=== PATIENT | female | born 1940 | race Caucasian/White ===

== ENCOUNTER 2020-06-07 11:05 | Inpatient (IN) | payer MEDICARE, OTHER, SELFPAY ==
[2020-06-07] VITALS (10 sets, daily range): BP systolic 135–158; BP diastolic 53–77; PULSE 59–83; RESP 13–20; TEMP 36.6–36.9; O2SAT 96–98; BMI 23.7; BMI 23.1
--- NOTE | 2020-06-07 11:26 | EKG12_ITS ---
Test Reason : CP Blood Pressure : / mmHG Vent. Rate : 078 BPM Atrial Rate : 078 BPM P-R Int : 156 ms QRS Dur : 122 ms QT Int : 394 ms P-R-T Axes : 068 -60 102 degrees QTc Int : 449 ms Normal sinus rhythm with sinus arrhythmia Left axis deviation Left bundle branch block Abnormal ECG Confirmed by JORGE AUSTIN, HI ([id number]), video editor VIET ROMAN ([id number]) on 06/08/2020 11:33:10 A M Referred By: SHERINE/DENILSON Confirmed By:ABI PATEL MD
--- NOTE | 2020-06-07 11:27 | ED.VISSUMM ---
- ER Visit Summary Date of Service: 06/07/20 Chief Complaint: Chest pain History of Present Illness: The patient is a 79 F who presents with chest pain that began today. Patient states she was walking and she felt pain in her substernal area. Patient describes it as a heaviness and pressure. Patient states she sat down and rested and the pain resolved. Patient states the pain lasted approximately 2 minutes. Patient denies any nausea or vomiting. Patient denies any diaphoresis. Patient denies any shortness of breath. Patient denies any lightheadedness or dizziness. Patient denies any palpitations. Patient denies any cough or fevers. Physical Examination: Vital signs are stable. Patient is afebrile. Patient is in no acute distress. Oral mucosa is pink and moist. Neck is supple. Trachea is midline. There is no JVD noted. Heart was regular rate and rhythm. Lungs are clear and equal bilaterally. Abdomen is soft. Bowel sounds are normal. There is no tenderness. There is no rebound or guarding noted. Skin is warm dry. Cranial nerves II through XII are intact. There are no focal motor or sensory deficits noted. Extremities are intact. There is no calf tenderness or edema. Test Results: EKG showed a normal sinus rhythm with a rate of 78. There is a left bundle branch block pattern noted. There are no acute ST or T wave changes. There are no prior EKGs available for comparison. CBC, basic metabolic profile, and troponin were obtained and were normal. Portable chest x-ray was obtained. There is no acute cardiopulmonary process. This was interpreted by the radiologist and reviewed by myself. Emergency Department Course and Treatment: Patient was given aspirin. Patient is currently pain-free. Patient remained pain-free while here in the emergency department. Patient has a HEART score of 6. I recommended admission to the patient. She is agreeable with this. Case was discussed with the hospitalist, Dr. Kelly. She will admit the patient to her service. Patient understood and was agreeable with the plan. All questions were answered. Disposition: Admit to hospital Impression: 1. Chest pain This note was generated with [employer] dictation software. It may contain incorrect words, spelling, and punctuation that were not noted in review of the chart prior to signing ED Disposition - Plan for ED Patient: Disposition: Acute Care Hospital [facility] Diagnosis: Chest pain Referrals: Rogelio Addison MD [Primary Care Provider] -
--- NOTE | 2020-06-07 11:36 | RAD_ITS ---
STUDY: X-RAY CHEST REASON FOR EXAM: Female, 79 years old. CHEST PAIN/TIGHTNESS RADIATING INTO AND DOWN LEFT ARM. TECHNIQUE: Single AP portable view of the chest. COMPARISON: None. FINDINGS: EKG electrodes are seen. Hyperinflation. The lungs are clear. There is no demonstrated pleural abnormality. Normal size heart. Normal mediastinum and ayaan. Normal visualized pulmonary arteries. Normal visualized aortic arch and descending thoracic aorta. Normal visualized thoracic spine. Normal visualized ribs, clavicles, and shoulders. There is no demonstrated abnormality of the visualized soft tissue structures of the upper abdomen. RAD/Chest 1 View (Portable) IMPRESSION: Hyperinflation. Electronically Signed: Ton Machuca, at 12:21 EDT , Service support ,
[2020-06-07 11:37] LABS: Absolute Lymphocyte Count 2.42 X10^3/uL (0.83-4.51); Absolute Neutrophil Count 4.7 X10^3/uL (2.0-7.7); Basophil# 0.03 X10^3/uL; Basophil% 0.4 % (0-1); Eosinophil# 0.11 X10^3/uL; Eosinophils% 1.4 % (0-5); Hematocrit 45.4 % (37-47); Hemoglobin 14.9 g/dL (12.0-15.0); Lymphocyte # 2.42 X10^3/ul (4.0); Mean Corp Hgb Conc 32.8 g/dL (32-36); Mean Corpuscular Hgb 30.7 pg (27.0-32.0); Mean Corpuscular Volume 93.6 fL (81-99); Mean Platelet Vol. 8.6 fl (6.2-12.0); Monocyte# 0.75 X10^3/uL; Monocyte% 9.3 % (0-10); NRBC Flagged by Analyzer 0 % (0-5); Neutrophil # 4.73 X10^3/uL (2.7-7.7); Neutrophil % 58.5 % (47-70); Platelet Count 274 K/mm3 (150-450); RBC Distribution Width CV 11.9 % (11.6-14.6); RBC Distribution Width SD 41.1 fl (35.1-43.9); Red Blood Count 4.85 M/mm3 (4.2-5.4); White Blood Count 8.1 K/mm3 (4.4-11.0)
[2020-06-07] MEDS: Aspirin 81 MG TAB.CHEW 324 MG PO (11:42)
[2020-06-07 11:50] LABS: Anion Gap 3 (5-15); BUN 16 mg/dL (7-18); BUN/Creat Ratio 20.7 RATIO (10-20); Calcium,Total 9.6 mg/dL (8.5-10.1); Chloride 107 mmol/L (98-107); Creatinine, Serum 0.77 mg/dL (0.55-1.02); EST Glomerular Filtration Rate 77 mL/min (>60); Est Glom Filt Rate - Afr Amer 93 mL/min (>60); Estimated Creatinine Clearance 38.97 ml/min; Glucose 102 mg/dL (74-106); Potassium 3.8 mmol/L (3.5-5.1); Sodium Level 141 mmol/L (136-145)
--- NOTE | 2020-06-07 13:12 | PCM.HP.STD ---
Problem List (1) Chest pain Status: Acute Qualifiers: Chest pain type: unspecified Qualified Code(s): R07.9 - Chest pain, unspecified (2) HTN (hypertension) Status: Chronic Qualifiers: Hypertension type: essential hypertension Qualified Code(s): I10 - Essential (primary) hypertension (3) HLD (hyperlipidemia) Status: Chronic Qualifiers: Hyperlipidemia type: unspecified Qualified Code(s): E78.5 - Hyperlipidemia, unspecified (4) Anxiety Status: Chronic (5) Insomnia Status: Chronic Qualifiers: Insomnia type: unspecified Qualified Code(s): G47.00 - Insomnia, unspecified History of Present Illness Date of Admission: 06/07/20 Chief Complaint: Chest pain The patient is a 79 y/o F w/ PMHx: HTN, HLD who presents to the [facility] ED on 06/07/20 with history of onset of chest discomfort while walking outside this AM, primarily in the substernal region described as a heaviness and pressure rated 5-6/10 in severity with radiation to the left upper extremities lasting approximately 2 minutes, resolving with rest with no associated dyspnea, diaphoresis, nausea or emesis, palpitations, lightheadedness or dizziness. She does not that she walked back home and went to the ED without onset of chest discomfort onset again. Patient denies any recent cough or fevers. Patient normally walks at least 2 miles every day with her and has never had any episodes like this prior. She does note significantly increased stress recently and anxiety with difficulty sleeping but has had some improvement following initiation of Zoom yoga in a chair with her son. Work-up in the ED included T 98.2, heart rate 83, BP 158/77, respiratory rate 20, 98% on room air, CBC unremarkable, BMP unremarkable, troponin less than 0.015, chest x-ray with hyperinflation otherwise no acute cardiopulmonary findings, EKG was sinus rhythm with left bundle branch block with no acute evidence of ischemia with no prior comparison available. In the ED patient ministered aspirin 324 mg p.o. x1 in addition to nitroglycerin. Past Medical History Past Medical History (Chronic Problems): Chronic Problems HTN (hypertension) (Chronic) HLD (hyperlipidemia) (Chronic) Anxiety (Chronic) Insomnia (Chronic) Allergies No Known Allergies Allergy (Verified 06/07/20 11:08) Home Medications: Ambulatory Orders Medication Instructions Recorded Atorvastatin Calcium [Lipitor] 20 mg PO QHS 06/07/20 Losartan Potassium [Cozaar] 25 mg PO DAILY 06/07/20 Surgical History: cataract, tonsillectomy Psychiatric History: Anxiety, - - Insomnia. CLINICAL STATISTICAL PROGRAMMER History: No pertinent CLINICAL STATISTICAL PROGRAMMER history Lives: Spouse/ Significant Other Smoking Status: Never smoker Tobacco Use: Non-smoker Alcohol: Rare Drugs: None - *Family History Maternal History Items: Heart Disease Paternal History Items: Heart Disease Sibling History Items: Heart Disease Review of Systems Constitutional: Denies: Anorexia, Chills, Fever, Malaise, Weakness, Weight Change, Fatigue HEENT: Denies: Head Aches, Sinus Congestion, Sinus Drainage Cardiovascular: Reports: Chest Pain, Chest Pressure, Heaviness. Denies: Chest Tightness, Light Headedness, Orthopnea, Palpitations, Syncope Respiratory: Denies: Cough, Shortness of Breath, Shortness of breath at rest, Shortness of breath upon exertion, Sputum production Gastrointestinal: Denies: Abdominal Pain, Nausea, Vomiting Genitourinary: Denies: Dysuria Musculoskeletal: Denies: Joint Pain, Joint Tenderness Skin: Denies: Rash, Wounds Neurological: Denies: Numbness, Tingling, Focal weakness Psychiatric: Reports: Anxiety, - - Recent difficulty sleeping.. Denies: Depression, Homicidal Ideations, Suicidal Ideations Hematologic/ Lymphatic: Denies: Easy Bruising, Easy Bleeding VTE Information - Inpt Only VTE Present on Admission: No VTE Mechan Device Prophylaxis: SCD's VTE Pharm Prophylaxis ordered?: Yes Patient Problems: Active and Suspected Problems Chest pain (Acute) Subjective: Patient seated upright in the ED bed, no acute distress, notes no recurrent chest discomfort. Objective: Physical Examination: General: awake, alert, oriented x 3 and cooperative, seated upright in the ED bed in no apparent distress, no recurrent chest discomfort confirmed. Skin: normal color, turgor, no icterus, cyanosis. HEENT: AT/NC, EOMI, PERRLA, MMM, no carotid bruits or JVD noted. Lungs: CTA bilaterally, moderate effort, mild decrease BL bases, no rales, ronchi or wheezing. Heart: Regular rate and rhythm; no gallop, rub audible, no reproducible discomfort on palpation. Abdomen: soft, NTTP, ND, normal BS, no HSM. Extremities: no cyanosis, clubbing, or edema. Neurological: patient awake, alert, oriented x 3; cognitive function intact; pupils equally reactive to light and accomodation; cranial nerves II-XII grossly normal, moving all 4 extremities, no focal deficits, strength preserved. Psychiatric: affect appears normal, does admit to having recent anxiety but no overt current anxiety apparent, also notes some insomnia, no evidence of depressive feelings. - Physical Exam Vitals/I&O's: Vital Signs Temp Pulse Resp BP Pulse Ox 98.2 F 63 13 158/77 H 97 06/07/20 11:05 06/07/20 12:58 06/07/20 12:58 06/07/20 11:05 06/07/20 12:58 Oxygen Delivery Method Room Air Weight: 134 lb 0.657 oz Body Mass Index (BMI) 23.7 Laboratory Results 06/07/20 11:09: WBC 8.1, RBC 4.85, Hgb 14.9, Hct 45.4, MCV 93.6, MCH 30.7, MCHC 32.8, RDW Std Deviation 41.1, RDW Coeff of Edda 11.9, Plt Count 274, MPV 8.6, Immature Gran % (Auto) 0.400, Neut % (Auto) 58.5, Lymph % (Auto) 30.0, Jewell % (Auto) 9.3, Eos % (Auto) 1.4, Baso % (Auto) 0.4, Absolute Neuts (auto) 4.7, Absolute Lymphs (auto) 2.42, Nucleated RBC % 0 06/07/20 11:09: Sodium 141, Potassium 3.8, Chloride 107, Carbon Dioxide 31.0, Anion Gap 3 L, BUN 16, Creatinine 0.77, Estim Creat Clear Calc 38.97, Est GFR (MDRD) Af Amer 93, Est GFR (MDRD) Non-Af 77, BUN/Creatinine Ratio 20.7 H, Glucose 102, Calcium 9.6, Troponin I < 0.015 Current Medications Nitroglycerin (Nitrostat) 0.4 mg SUBLINGUAL Q5M PRN PRN Reason: Chest pain Assessment/Plan All Active Problems Chest pain (Acute) The patient is a 79 y/o F w/ PMHx: HTN, HLD who presents to the [facility] ED on 06/07/20 with history of onset of chest discomfort while walking outside this AM, primarily in the substernal region described as a heaviness and pressure rated 5-6/10 in severity with radiation to the left upper extremities lasting approximately 2 minutes, resolving with rest. 1. Chest Pain: EKG in ED with sinus rhythm with LBBB, no prior comparison without acute evidence of ischemia, CXR w/ evidence hyperinflation, initial trop normal x 1. Will admit to PCU, place on a monitored bed to assure no acute myocardial infarction with serial cardiac enzymes and EKGs. If EKG and enzymes remain unremarkable will obtain AM cardiac stress testing and given activity history will attempt treadmill. Mag pending. FLP in AM. ASA, NG, morphine. 2. Hypertension: Continue home regimen including losartan, PRN hydralazine. 3. Hyperlipidemia: Continue home statin regimen. AM FLP. 4. Insomnia, Anxiety: From discussions situational, patient is attempting several interventions including yoga, recommended consideration of peter chi additionally, PRN sleep agent and recommended close early follow-up with her primary care physician at discharge. 5. DVT prophylaxis: SCDs, lovenox. 6. CODE status: Patient HCPOA is her who is present and living will is currently in place. Discussed CODE status at length including difference between FULL code, DNR-CCA and DNR-CC status. Following discussions about the differences in these status, requested Full Code status given active healthy health status. Advanced Care Planning Face to Face Time: 16 minutes. OBSV E&M: [id number] Initial observation care L3 Procedures: [id number] Advncd Care Plan 30 Min
--- NOTE | 2020-06-07 13:49 | EKG12_ITS ---
Test Reason : POST CATH Blood Pressure : / mmHG Vent. Rate : 056 BPM Atrial Rate : 056 BPM P-R Int : 152 ms QRS Dur : 122 ms QT Int : 516 ms P-R-T Axes : 066 -59 045 degrees QTc Int : 497 ms Sinus bradycardia with sinus arrhythmia Left axis deviation Left bundle branch block Abnormal ECG When compared with ECG of 08-JUN-2020 05:51, MANUAL COMPARISON REQUIRED, DATA IS UNCONFIRMED Confirmed by ZBIGNIEW AUSTIN, ANNIE ([id number]), graphic editor VIET ROMAN ([id number]) on 06/14/2020 11:09:39 AM Referred By: ROBIN Confirmed By:ANNIE COY MD
[2020-06-07 14:11] LABS: Magnesium 2.3 mg/dL (1.6-2.6)
--- NOTE | 2020-06-07 16:00 | EKG12_ITS ---
Test Reason : Blood Pressure : / mmHG Vent. Rate : 065 BPM Atrial Rate : 065 BPM P-R Int : 154 ms QRS Dur : 126 ms QT Int : 432 ms P-R-T Axes : 054 -44 082 degrees QTc Int : 449 ms Sinus rhythm with occasional Premature ventricular complexes Left axis deviation Left bundle branch block Abnormal ECG When compared with ECG of 07-JUN-2020 14:26, MANUAL COMPARISON REQUIRED, DATA IS UNCONFIRMED Confirmed by ZBIGNIEW AUSTIN, ANNIE ([id number]), news assignment editor VIET ROMAN ([id number]) on 06/14/2020 11:10:41 AM Referred By: NIKA Confirmed By:ANNIE COY MD
--- NOTE | 2020-06-07 19:34 | ECHOD_ITS ---
Reason For Study: CHEST PAIN Procedure This was a 2D Doppler, Color Flow transthoracic echocardiogram. The exam was of adequate technical quality. Exam performed portable in patient room. Left Ventricle Normal LV size. Mild segmental systolic dysfunction (see wall motion). The estimated ejection fraction is 50 %. Septal motion consistent with IVCD. No evidence for diastolic dysfunction. Infero- Basal: Hypokinetic. Mid-Inferior: Hypokinetic. Mid-inferoseptal : Hypokinetic. Mid-anteroseptal : Hypokinetic. Right Ventricle Normal RV size. Normal systolic function. Atria Normal left atrium. Normal right atrium. No doppler evidence for ASD. Mitral Valve There is no mitral annular calcification. Equivocal mitral valve prolapse. Mild (1+) mitral valve insufficiency. Tricuspid Valve Normal tricuspid valve. Mild to moderate (1-2+) tricuspid valve insufficiency. Right ventricular systolic pressure estimated to be 27 mmHg. Aortic Valve Trisinus/trileaflet aortic valve. Normal aortic valve. Mild (1+) aortic valve insufficiency. Pulmonic Valve The pulmonic valve is not well visualized. Mild (1+) pulmonic valve insufficiency. Great Vessels Normal sized aortic root. Pericardium/Pleural No pericardial effusion. MMode/2D Measurements & Calculations LVIDd: 4.1 cm IVSd: 1.2 cm Ao root diam: 2.7 cm LVIDs: 3.2 cm LVPWd: 1.0 cm RVDd: 3.3 cm FS: 21.5 % LAV(MOD-bp): 38.3 ml LA A4 area: 12.4 cm2 LA dimension(2D): 3.8 cm LAV(MOD-bp) Indexed: 23.8 ml/m2 LAV(MOD-sp2): 43.4 ml LAV(MOD-sp4): 30.1 ml RA A4 area: 12.4 cm2 Doppler Measurements & Calculations MV E max adrien: 39.9 cm/sec Lat Peak E' Adrien: 4.1 cm/sec Med Peak E' Adrien: 3.8 cm/sec MV A max adrien: 91.1 cm/sec E/E' lat: 9.8 E/E' med: 10.5 MV E/A: 0.44 Ao V2 max: 106.7 cm/sec AI max adrien: 385.7 cm/sec LV V1 max: 70.1 cm/sec Ao max P.1 mmHg AI max P.6 mmHg LV V1 max P.0 mmHg AI dec slope: 284.1 cm/sec2 AI P1/2t: 397.6 msec PA V2 max: 82.2 cm/sec PI end-d adrien: 139.3 cm/sec TR max adrien: 244.2 cm/sec TR max P.8 mmHg Interpretation Summary Mild segmental systolic dysfunction (see wall motion). The estimated ejection fraction is 50 %. Septal motion consistent with IVCD. Equivocal mitral valve prolapse. Mild (1+) mitral valve insufficiency. Mild to moderate (1-2+) tricuspid valve insufficiency. Mild (1+) aortic valve insufficiency. Mild (1+) pulmonic valve insufficiency. Right ventricular systolic pressure estimated to be 27 mmHg. No evidence for diastolic dysfunction. Ordering Physician: Mely Kelly Referring Physician: Rogelio Addison Performed By: Katelynn Bryson RDCS, RVT
[2020-06-07] MEDS: Clopidogrel Bisulfate 300 MG Tablet PO (20:53)
[2020-06-07] MEDS: Enoxaparin 60 MG/0.6 ML Syringe SC (20:53)
[2020-06-07] MEDS: Famotidine 20 MG Tablet PO (20:53)
[2020-06-07] MEDS: Atorvastatin Calcium 20 MG Tablet PO (20:53)
[2020-06-07] MEDS: 0.9% Normal Saline 1,000 ML 100 ML IV (20:54)
[2020-06-07] MEDS: 0.9% Saline Lock 10 ML Syringe IV (20:55)
[2020-06-07] MEDS: MELATONIN 3 MG TABLET PO (20:55)
[2020-06-07 20:57] LABS: Prothrombin Time (Protime)PT. 12.6 SECONDS (11.7-14.9)
[2020-06-07 20:58] LABS: Partial Thromboplast Time 28.2 Seconds (24.1-36.2)
[2020-06-07] MEDS: busPIRone 5 MG Tablet PO (22:26)
[2020-06-08] VITALS (19 sets, daily range): BP systolic 99–146; BP diastolic 46–64; PULSE 53–82; RESP 16–18; TEMP 36.4–36.8; O2SAT 95–100
[2020-06-08] MEDS: 0.9% Normal Saline 1,000 ML 100 ML IV (05:01)
--- NOTE | 2020-06-08 05:55 | EKG12_ITS ---
Test Reason : AM EKG Blood Pressure : / mmHG Vent. Rate : 068 BPM Atrial Rate : 068 BPM P-R Int : 166 ms QRS Dur : 124 ms QT Int : 456 ms P-R-T Axes : 063 -60 100 degrees QTc Int : 484 ms Normal sinus rhythm Left axis deviation Left bundle branch block Abnormal ECG When compared with ECG of 07-JUN-2020 16:19, MANUAL COMPARISON REQUIRED, DATA IS UNCONFIRMED Confirmed by JORGE AUSTIN, HI ([id number]), city editor VIET ROMAN ([id number]) on 06/22/2020 1:34:54 PM Referred By: DR KELLY Confirmed By:ABI PATEL MD
[2020-06-08 06:04] LABS: Absolute Lymphocyte Count 2.31 X10^3/uL (0.83-4.51); Absolute Neutrophil Count 4.6 X10^3/uL (2.0-7.7); Basophil# 0.02 X10^3/uL; Basophil% 0.3 % (0-1); Eosinophil# 0.13 X10^3/uL; Eosinophils% 1.7 % (0-5); Hematocrit 42.4 % (37-47); Lymphocyte # 2.31 X10^3/ul (4.0); Lymphocyte % 29.9 % (19-41); Mean Corpuscular Hgb 30.8 pg (27.0-32.0); Mean Corpuscular Volume 93.4 fL (81-99); Mean Platelet Vol. 8.7 fl (6.2-12.0); Monocyte# 0.67 X10^3/uL; Monocyte% 8.7 % (0-10); NRBC Flagged by Analyzer 0 % (0-5); Neutrophil # 4.57 X10^3/uL (2.7-7.7); Platelet Count 244 K/mm3 (150-450); RBC Distribution Width CV 11.9 % (11.6-14.6); RBC Distribution Width SD 40.7 fl (35.1-43.9); Red Blood Count 4.54 M/mm3 (4.2-5.4); White Blood Count 7.7 K/mm3 (4.4-11.0)
[2020-06-08 06:13] LABS: International Normalized Ratio 1.1; Prothrombin Time (Protime)PT. 13.9 SECONDS (11.7-14.9)
[2020-06-08 06:14] LABS: Partial Thromboplast Time 40.1 Seconds (24.1-36.2)
[2020-06-08 06:42] LABS: AST(SGOT) 22 U/L (15-37); Alanine Aminotransfer ALT/SGPT 19 U/L (13-56); Albumin, Serum 3.5 g/dL (3.2-5.0); Alkaline Phosphatase 97 U/L (45-117); Anion Gap 4 (5-15); BUN 17 mg/dL (7-18); BUN/Creat Ratio 24.2 RATIO (10-20); Calcium,Total 8.8 mg/dL (8.5-10.1); Chloride 113 mmol/L (98-107); Cholesterol 151 mg/dL (200); EST Glomerular Filtration Rate 86 mL/min (>60); Est Glom Filt Rate - Afr Amer 104 mL/min (>60); Estimated Creatinine Clearance 38.97 ml/min; Globulin 3.4 g/dL (2.2-4.2); Glucose 89 mg/dL (74-106); High Density Lipoprotein 47 mg/dL; Potassium 3.7 mmol/L (3.5-5.1); Protein, Total 6.9 g/dL (6.4-8.2); Sodium Level 144 mmol/L (136-145); Triglycerides 200 mg/dL; Very Low Density Lipoprotein 40 mg/dL (5-40)
--- NOTE | 2020-06-08 08:03 | PCM.CONS.C ---
Problem List (1) NSTEMI (non-ST elevated myocardial infarction) Status: Acute (2) LBBB (left bundle branch block) Status: Acute (3) MVP (mitral valve prolapse) Status: Acute (4) HTN (hypertension) Status: Chronic Qualifiers: Hypertension type: essential hypertension Qualified Code(s): I10 - Essential (primary) hypertension (5) HLD (hyperlipidemia) Status: Chronic Qualifiers: Hyperlipidemia type: unspecified Qualified Code(s): E78.5 - Hyperlipidemia, unspecified Reason for Consult Date of Consultation: 06/08/20 History of Present Illness: The patient is a 79 year [id number]-zgr white female with a past medical history of mitral valve prolapse, hyperlipidemia, and hypertension who is referred for evaluation of a non-ST segment elevation WI and an abnormal ECG. She states that she has been relatively healthy most of her life with the exception of the aforementioned concerns. She does not recall going through any cardiovascular testing except a very remote echocardiogram and exercise tolerance test which apparently demonstrated her mitral valve prolapse and no other obvious issues. She states that she is noted twinges in her chest recently. She noted yesterday while walking up an incline during her morning walk that she developed chest pressure across her precordium that radiated down her left upper extremity that led to her needing to stop and sit on a set of steps to rest. She states after she did that her symptoms went away and she felt better. Based upon those symptoms she presented to the hospital for further evaluation. She was noted to have a negative troponin I level. Her ECG demonstrated sinus rhythm with a left bundle branch block pattern. She was placed in the hospital for further evaluation and care. Her subsequent troponin I levels have increased. Her ECG has continued to demonstrate an underlying left bundle branch block pattern. She states at rest she has not had any of those symptoms. She has had no orthopnea or PND or peripheral pitting edema. There has been no near syncope or syncope. She believes otherwise she has been doing well. [] Past Medical History Allergies/Adverse Reactions: Allergies No Known Allergies Allergy (Verified 06/07/20 11:08) Home Medications: Ambulatory Orders Medication Instructions Recorded Atorvastatin Calcium [Lipitor] 20 mg PO QHS 06/07/20 Losartan Potassium [Cozaar] 25 mg PO DAILY 06/07/20 Past Medical History (Chronic Problems): Chronic Problems HTN (hypertension) (Chronic) HLD (hyperlipidemia) (Chronic) Anxiety (Chronic) Insomnia (Chronic) Surgical History: cataract, tonsillectomy Psychiatric History: Anxiety, - - Insomnia. 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 Denies: Shortness of Breath, Orthopnea, PND, Peripheral Edema, Palpitations, Lightheadedness, Dizziness, Near Syncope, Syncope Respiratory: Denies: Cough, Sputum Production, Hemoptysis Gastrointestinal: Denies: Hematemesis, Hematochezia, Melena Genitourinary: Denies: Dysuria, Hematuria Skin: Denies: Rash Subjectve: -year-old thin white female who appears to be resting comfortably at the moment in no acute distress. Objective: Vital Signs Temp Pulse Resp BP Pulse Ox 97.8 F 68 18 146/64 H 96 06/08/20 04:50 06/08/20 07:00 06/08/20 04:50 06/08/20 04:50 06/08/20 04:50 Oxygen Delivery Method Room Air Weight: 130 lb 3.2 oz Body Mass Index (BMI) 23.1 Intake and Output for Last 24 Hours 06/06/20 06/07/20 06/08/20 23:59 23:59 23:59 Intake Total 360 / 710 1161.67 / 1161.67 Balance 360 / 710 1161.67 / 1161.67 General: Awake, Alert, Oriented x 3, Cooperative, No Acute Distress HEENT: Atraumatic, Normocephalic, PERRL, EOMI, Sclera Non Icteric Neck: Supple, Good ROM, No JVD Lungs: Clear to auscultation Cardiovascular: Regular Rhythm, Premature Ectopic Beats, Normal S1, Normal S2, Paradoxically Split S2 Vascular: No Carotid Bruits Abdomen: Bowel Sounds Present, Soft, Non Tender Extremities: No Cyanosis, No Clubbing, No edema Neurological: No Focal Motor or Sensory Deficit Psych/Mental Status: Appropriate 06/07/20 11:09: WBC 8.1, RBC 4.85, Hgb 14.9, Hct 45.4, MCV 93.6, MCH 30.7, MCHC 32.8, Plt Count 274, MPV 8.6, Immature Gran % (Auto) 0.400, Neut % (Auto) 58.5, Lymph % (Auto) 30.0, [place] % (Auto) 9.3, Eos % (Auto) 1.4, Baso % (Auto) 0.4, Absolute Neuts (auto) 4.7, Nucleated RBC % 0 06/07/20 11:09: Sodium 141, Potassium 3.8, Chloride 107, Carbon Dioxide 31.0, Anion Gap 3 L, BUN 16, Creatinine 0.77, Est GFR (MDRD) Af Amer 93, Est GFR (MDRD) Non-Af 77, BUN/Creatinine Ratio 20.7 H, Glucose 102, Calcium 9.6, Troponin I < 0.015 06/07/20 11:09: Magnesium 2.3 06/07/20 14:19: Troponin I 0.146 H 06/07/20 17:00: Troponin I 0.219 H 06/07/20 20:23: PT 12.6, INR 1.0, APTT 28.2 06/08/20 05:45: WBC 7.7, RBC 4.54, Hgb 14.0, Hct 42.4, MCV 93.4, MCH 30.8, MCHC 33.0, Plt Count 244, MPV 8.7, Immature Gran % (Auto) 0.400, Neut % (Auto) 59.0, Lymph % (Auto) 29.9, [place] % (Auto) 8.7, Eos % (Auto) 1.7, Baso % (Auto) 0.3, Absolute Neuts (auto) 4.6, Nucleated RBC % 0 06/08/20 05:45: Sodium 144, Potassium 3.7, Chloride 113 H, Carbon Dioxide 27.0, Anion Gap 4 L, BUN 17, Creatinine 0.70, Est GFR (MDRD) Af Amer 104, Est GFR (MDRD) Non-Af 86, BUN/Creatinine Ratio 24.2 H, Glucose 89, Calcium 8.8, Total Bilirubin 0.90, Triglycerides 200 H, Cholesterol 151, LDL Cholesterol 64, VLDL Cholesterol 40, HDL Cholesterol 47 06/08/20 05:45: PT 13.9, INR 1.1, APTT 40.1 H Rhythm: Sinus rhythm EKG: As noted above CXR: Preliminary evaluation: No acute cardiopulmonary disease process appreciated: Please see official report Assessment/Plan 1. Non-ST segment elevation WI The patient presents with symptoms concerning for exertional angina pectoris and subsequent abnormal troponin I levels concerning for non-ST segment elevation WI superimposed upon the finding of an abnormal ECG with a left bundle branch block pattern. At the present time the patient appears to be resting comfortably. She will continue medical therapy. This is included aspirin and antiplatelet therapy and additional antianginal therapy, etc. as deemed appropriate. She is going to undergo evaluation with a transthoracic echocardiogram to evaluate her left ventricular wall motion and systolic function. She has been recommended to have further evaluation with diagnostic cardiac catheterization based upon the aforementioned concerns and findings. The procedure and risks were discussed with her. She was agreeable to this approach. 2. Abnormal ECG/left bundle branch block pattern The patient appears to be unaware of any abnormal findings on her ECGs in the past. It is unclear as to how long the left bundle branch block pattern has been present. It is unclear whether this represents concerns with her underlying electrical system versus an underlying CAD related process versus a possible underlying cardiomyopathy, etc. The present time she will continue cardiac rhythm monitoring and follow-up. 3. Mitral valve prolapse She states she has a history of mitral valve prolapse. She states she was evaluated many years ago with a transthoracic echocardiogram. She is going to undergo repeat echocardiogram to reassess her valvular anatomy and physiology. 4. Hyperlipidemia Her lipid labs were evaluated. Her triglycerides are somewhat elevated. She will continue her cardiac evaluation. Depending upon her findings she may need further medical therapy. 5. Hypertension Her blood pressure will be monitored. She can be treated medically as deemed appropriate. Comment: The patient's case has been discussed with the patient and previously with Dr. Mely Kelly. This note was generated using a voice recognition system and there may be incorrect words, spelling or punctuation that were not noted when reviewing the office note prior to saving. Procedure Criteria Procedure Type: Elective COVID Risk Discussion: The surgeon/proceduralist and patient have discussed in detail the risk of exposure to and/or potential harm posed by the COVID-19 virus with having a surgery/procedure at this time versus the risk of delaying the surgery/procedure. It is not possible to know either the risk of delaying the surgery or procedure or chance of getting an infection with perfect accuracy, but a joint decision was made between the patient and the surgeon/proceduralist to proceed at this time with the scheduled surgery/procedure as indicated on the consent form.
[2020-06-08] MEDS: Aspirin E.C. 81 MG Tablet PO (08:15)
[2020-06-08] MEDS: Clopidogrel Bisulfate 75 MG Tablet PO (08:15)
[2020-06-08] MEDS: 0.9% Saline Lock 10 ML Syringe IV (08:15)
[2020-06-08] MEDS: Losartan Potassium 50 MG Tablet 25 MG PO (08:15)
[2020-06-08] MEDS: busPIRone 5 MG Tablet PO ×2 (10:22→21:28)
--- NOTE | 2020-06-08 10:34 | NURSING ---
Report called to ARELIS Adams in Player [employer]. Okay for patient to be transferred to labor economics professor at this time
--- NOTE | 2020-06-08 12:04 | CL.D_ITS ---
Patient Name: CRUZITO BRUMFIELD Study Date: 06/08/2020 Performing: Tj Vines MD Ht: 62.99 inches 160 cm : 1940 Wt: 130.07 lbs 59 kg Age: 79 Gender: female BSA: 1.61 PROCEDURE(S) PERFORMED [id number] CLINICAL PROFILE AND INDICATIONS Indications: Suspected CAD Heart Failure: None Stress/Imaging Stress/Image Study Performed: No Angina Classification Anginal Classification w/in 2 Weeks: CCS III CAD Presentations: Non-STEMI. CONCLUSIONS Normal Left Ventricular End Diastolic Pressure Segmented LV systolic dysfunction- Mild LVEF: by LV gram 55 % [place] Multivessel CAD RECOMMENDATIONS Risk factor modification Medical therapy Consult Interventional Cardiology: for consideration of PCI DESCRIPTION OF PROCEDURE The patient arrived to the procedure lab. The risks and benefits of the procedure as well as a full d escription of our services here and current unavailability of surgical backup were fully explained to the patient and/or their significant other prior to the catheterization. The Timeout was completed, verifying the correct patient and procedure. The patient's procedural site was prepped and draped in the usual fashion. Local anesthetic was given subcutaneously to right radial region with Lidocaine 2% . Using a modified Seldinger technique, arterial access was obtained via the right radial artery, a 6 Fr sheath was inserted. Right Coronary Artery selective angiography was then performed in multiple v iews using a 5 Fr. 4.0 Esmond catheter. Left Coronary Artery selective angiography was performed in mu ltiple views using a 5 Fr. 4.0 Esmond catheter. Left Ventriculography was performed in SAMANO projection using a 5 Fr. Pigtail catheter. LV to AO pullback pressures were then recorded. CORONARY ANGIOGRAPHY DOMINANCE: Right Dominant LEFT HEART ASSESSMENT Left Ventricular Ejection Fraction: by LV Gram 55 % Inferior Mid Hypokinesis Normal Left Ventricular End Diastolic Pressure LVEDP: 14 mmHg LEFT MAIN: Angiographically normal LEFT ANTERIOR DESCENDING ARTERY: PROX LAD: long: smooth: 50 - 75 % Stenosis MID LAD: 50 % Stenosis, Mild luminal irregularities DIAGONAL 1: Ostial - 85 % Stenosis CIRCUMFLEX ARTERY: Angiographically normal RIGHT CORONARY ARTERY: Mild luminal irregularities PROX RCA: diffuse: 10 - 25 % Stenosis DISTAL RCA: eccentric: smooth: 25 % Stenosis AORTIC ROOT: Angiographically normal COMPLICATIONS PROCEDURE MEDICATIONS Versed 1 mg IV Fentanyl 50 mcg IV Oxygen: 2 L/min via nasal cannula Heparin diluted in 23cc Heparinized saline. Patient given 10cc IA of this solution. 06/08/2020 11:18: 09 Verapamil 2.5mg, Ntg 100mcgs, 2000 units of Heparin diluted in 23cc Heparinized saline. Patient give n 10cc IA of this solution. 06/08/2020 11:18:09 SUMMARY OF HEMODYNAMIC DATA Time AIR REST ECG 10:49:09 AO 116/72 (92) SA 11:21:38 LV 162/-6, 18 11:27:16 LV 161/-6, 14 11:27:17 LV 148/-5, 15 11:28:07 LVp 148/-7, 11 11:28:15 AOp 152/66 (103) 11:28:20 Signed By Tj Vines MD On 06/08/2020 12:03:08 Tj Vines MD
--- NOTE | 2020-06-08 12:45 | EKG12_ITS ---
Test Reason : Blood Pressure : / mmHG Vent. Rate : 062 BPM Atrial Rate : 062 BPM P-R Int : 154 ms QRS Dur : 120 ms QT Int : 440 ms P-R-T Axes : 059 -51 083 degrees QTc Int : 446 ms Sinus rhythm with Premature atrial complexes Left axis deviation Left ventricular hypertrophy with QRS widening and repolarization abnormality Inferior infarct , age undetermined Abnormal ECG When compared with ECG of 07-JUN-2020 11:11, MANUAL COMPARISON REQUIRED, DATA IS UNCONFIRMED Confirmed by ZBIGNIEW AUSTIN, ANNIE ([id number]), field map editor VIET ROMAN ([id number]) on 06/14/2020 11:11:02 AM Referred By: ROBIN Confirmed By:ANNIE COY MD
[2020-06-08] MEDS: 0.9% Normal Saline 1,000 ML 60 ML IV (13:02)
--- NOTE | 2020-06-08 14:24 | CRPHASE1_ITS ---
Patient Communication PHII Cardiac Rehab Discussed with Patient:: Yes Guide to Cardiac Rehab Given to Patient:: Yes Cardiac Rehab Facility Choice List Given to Patient:: Yes Choice Program [facility] CR PHII:: Communication Given to CR Choice Program Other:: Communication Given to CR D[facility]ge [facility]:: [facility] Phase II Cardiac Rehab:: Yes Sessions:: 36 sessions - 3 days/wk, 12 weeks Risk Factors/Lifestyle Smoking Status: Never smoker Hx Hypertension: Yes Hx Diabetes Mellitus Type 1: No Hx Diabetes Mellitus Type 2: No Hx Dyslipidemia: Yes Hx Obesity: No Post-Menopausal: Yes Stress: Long-standing ETOH: No Caffeine: No Substance Abuse: No Laboratory Values: Cardiac Rehab Phase I Labs Triglycerides 200 mg/dL (-199) H 06/08/20 05:45 Cholesterol 151 mg/dL (200) 06/08/20 05:45 LDL Cholesterol 64 mg/dL (0-130) 06/08/20 05:45 HDL Cholesterol 47 mg/dL (40-) 06/08/20 05:45 Cardiac Rehabilitation Info Cardiac Rehabilitation Program Information: Cardiac Rehabilitation is important for patients like you who are recovering from a heart problem. Cardiac rehabilitation programs are recognized as integral to the continued care of the patient with coronary heart disease. The cardiac rehabilitation program is designed to optimize a patient's physical, psychological, and social functioning. Health managed care coordinator work in cardiac rehabilitation programs and assist you with getting the treatments you need to get stronger and healthier - like exercise, healthy eating habits, and medications. Cardiac rehabilitation has been show to help people with heart problems live longer and have better life enjoyment than people who do not go to cardiac rehabilitation. Please contact the Cardiac Rehabilitation Program at [facility] at in two weeks if you have not heard from them.
--- NOTE | 2020-06-08 14:26 | CRPH1.INSTRU ---
General Education CAD and cardiac anatomy and function:: Patient communicates acknowledgment Explanation of diagnoses and procedures:: Patient communicates acknowledgment Sign/Symptoms of TN:: Patient communicates acknowledgment Antiplatelet therapy: Patient communicates acknowledgment Proper use of NTG-SL: Patient communicates acknowledgment Emergency procedures and activation of EMS: Patient communicates acknowledgment Compliance of all prescribed medications: Patient communicates acknowledgment Smoking Patient Nicotine/Smoking Risk Factors Are:: Never smoked Dyslipidemia Patient Dyslipidemia Risk Factors Are:: Total Cholesterol, Triglycerides, HDL, LDL Recommendations Include:: Lipid profile provided, Reviewed NCEP/ATP guidelines, Therapeutic Lifestyle Change dietary guidelines Dyslipidemia Response Code:: Patient communicates acknowledgment Overweight/Obesity Patient Overweight/Obesity Risk Factors Are:: BMI Normal [18-25 & < 65 years old] Hypertension Recommendations Include:: Maintain BP <130/85, DASH dietary guidelines, Decrease/maintain normal body weight Hypertension:: Patient communicates acknowledgment Heart Disease Recommendations Include:: Educated family members of their risk Heart Disease Response Code:: Patient communicates acknowledgment Diabetes Patient Diabetes Risk Factors Are:: No documented hx of diabetes Stress Recommendations Include:: Identification of stressors, and assessment of coping skills, Stress management techniques Stress Response Code:: Patient communicates acknowledgment
--- NOTE | 2020-06-08 14:51 | PCM.PROGNOTE ---
Patient Problems: Active and Suspected Problems Chest pain (Acute) NSTEMI (non-ST elevated myocardial infarction) (Acute) LBBB (left bundle branch block) (Acute) MVP (mitral valve prolapse) (Acute) Subjective: Patient was seen and examined today before she underwent cardiac catheterization today, I talked with the patient and her who was in her room today and answered any questions that she might have about the catheterization. - Physical Exam Vitals/I&O's: Vital Signs Temp Pulse Resp BP Pulse Ox 97.7 F L 57 L 18 122/55 H 99 06/08/20 13:15 06/08/20 14:45 06/08/20 14:45 06/08/20 14:45 06/08/20 14:45 Oxygen Delivery Method Room Air Weight: 59.058 kg Body Mass Index (BMI) 23.1 Intake and Output for Last 24 Hours 06/06/20 06/07/20 06/08/20 23:59 23:59 23:59 Intake Total 360 / 710 1710.00 / 1710.00 Balance 360 / 710 1710.00 / 1710.00 General: Alert, Oriented x3, Cooperative, No apparent distress, Well developed, Well nourished HEENT: Atraumatic, PERRLA, EOMI, Normocephalic Oral: Moist Mucosa Neck: Supple, No JVD, Trachea Midline, Thyroid Normal Size and Texture Lungs: Clear to auscultation, Normal air movement, No rhonchi, No wheeze Cardiovascular: Regular rate, Regular Rhythm, Normal S1, Normal S2, No murmurs, PMI Normal, No rub noted, No Gallop Abdomen: Bowel Sounds Present, Soft, Non Tender, Non-Distended Extremities: No clubbing, No cyanosis, No edema, Capillary Refill Less than 3 Seconds Skin: No rashes, No breakdown Musculoskeletal: No Tenderness to Palpation of Joints or Extremities Neurological: Cranial nerves II-XII grossly intact, Neuro grossly intact, Sensory exam intact to light touch and pain, Coordination normal Psych/Mental Status: Normal Affect, Appropriate, Alert and oriented to time, place, person, mood and affect Laboratory Results 06/07/20 14:19: Troponin I 0.146 H 06/07/20 17:00: Troponin I 0.219 H 06/07/20 20:23: PT 12.6, INR 1.0, APTT 28.2 06/08/20 05:45: WBC 7.7, RBC 4.54, Hgb 14.0, Hct 42.4, MCV 93.4, MCH 30.8, MCHC 33.0, RDW Std Deviation 40.7, RDW Coeff of Edda 11.9, Plt Count 244, MPV 8.7, Immature Gran % (Auto) 0.400, Neut % (Auto) 59.0, Lymph % (Auto) 29.9, [place] % (Auto) 8.7, Eos % (Auto) 1.7, Baso % (Auto) 0.3, Absolute Neuts (auto) 4.6, Absolute Lymphs (auto) 2.31, Nucleated RBC % 0 06/08/20 05:45: Sodium 144, Potassium 3.7, Chloride 113 H, Carbon Dioxide 27.0, Anion Gap 4 L, BUN 17, Creatinine 0.70, Estim Creat Clear Calc 38.97, Est GFR (MDRD) Af Amer 104, Est GFR (MDRD) Non-Af 86, BUN/Creatinine Ratio 24.2 H, Glucose 89, Calcium 8.8, Total Bilirubin 0.90, AST 22, ALT 19, Alkaline Phosphatase 97, Total Protein 6.9, Albumin 3.5, Globulin 3.4, Albumin/Globulin Ratio 1.0, Triglycerides 200 H, Cholesterol 151, LDL Cholesterol 64, VLDL Cholesterol 40, HDL Cholesterol 47 06/08/20 05:45: PT 13.9, INR 1.1, APTT 40.1 H Current Medications Acetaminophen (Tylenol) 650 mg PO Q6H PRN PRN PRN Reason: Pain Score 1-10/Temp > 100.7 F Al Hydroxide/Mg Hydroxide (Mylanta Ii) 30 ml PO Q6H PRN PRN PRN Reason: Gastric Burning Albuterol Sulfate (Ventolin Aerosols) 2.5 mg INHALATION Q2H PRN PRN PRN Reason: Dyspnea, wheezing Aspirin (Ecotrin) 81 mg PO DAILY@0800 [facility] Last Admin: 06/08/20 08:15 Dose: 81 mg Documented by: Atorvastatin Calcium (Lipitor) 20 mg PO QHS [facility] Last Admin: 06/07/20 20:53 Dose: 20 mg Documented by: Atropine Sulfate () 0.5 mg IV UD PRN PRN Reason: HR <50 bpm Buspirone HCl (Buspar) 5 mg PO BID [facility] Last Admin: 06/08/20 10:22 Dose: 5 mg Documented by: Clopidogrel Bisulfate (Plavix) 75 mg PO DAILY [facility] Last Admin: 06/08/20 08:15 Dose: 75 mg Documented by: Enoxaparin Sodium (Lovenox) 60 mg SC Q12@0600,1800 [facility] Last Admin: 06/08/20 07:42 Dose: Not Given Documented by: Famotidine (Pepcid) 20 mg PO BID [facility] Last Admin: 06/07/20 20:53 Dose: 20 mg Documented by: Guaifenesin (Robitussin) 20 ml PO Q4H PRN PRN PRN Reason: COUGH Heparin Sodium (Beef Lung) (Heparin 500 Unit/5 Ml (100/Ml)) 500 unit IV UD PRN PRN Reason: HEPARIN FLUSH Hydralazine HCl (Apresoline Iv) 10 mg IV Q4H PRN PRN PRN Reason: SBP > 160 Sodium Chloride () 250 mls @ 15 mls/hr IV .[id number] PRN PRN Reason: Saline Flush Sodium Chloride () 250 mls @ 15 mls/hr IV .[id number] PRN PRN Reason: Additional IVPB Infusion Sodium Chloride () 1,000 mls @ 100 mls/hr IV .Q10H [facility] Last Infusion: 06/08/20 10:30 Dose: 0 mls/hr Documented by: Sodium Chloride () 1,000 mls @ 15 mls/hr IV .Q48H [facility] Last Admin: 06/08/20 10:30 Dose: Not Given Documented by: Sodium Chloride () 1,000 mls @ 60 mls/hr IV .[id number] [facility] Last Admin: 06/08/20 13:02 Dose: 60 mls/hr Documented by: Labetalol HCl (Trandate) 5 mg IV X1 PRN PRN Reason: SBP > 160 when pulling sheath Stop: 06/10/20 12:45 Losartan Potassium (Cozaar) 25 mg PO DAILY [facility] Last Admin: 06/08/20 08:15 Dose: 25 mg Documented by: Magnesium Hydroxide (Milk Of Magnesia) 30 ml PO DAILY PRN PRN PRN Reason: Constipation Melatonin (Melatonin) 3 mg PO QHS [facility] Last Admin: 06/07/20 20:55 Dose: 3 mg Documented by: Morphine Sulfate () 2 mg IV Q3H PRN PRN PRN Reason: Pain Score 6-10/10 Nitroglycerin (Nitrostat) 0.4 mg SUBLINGUAL Q5M PRN PRN Reason: CARDIAC/CHEST PAIN Ondansetron HCl (Zofran) 4 mg IV Q8H PRN PRN PRN Reason: NAUSEA/VOMITING Oxycodone HCl (Oxyir) 5 mg PO Q4H PRN PRN PRN Reason: Pain Score 4-5/10 Prochlorperazine Edisylate (Compazine Iv) 5 mg IV Q4H PRN PRN PRN Reason: Breakthrough Nausea/Vomiting Psyllium Hydrophilic Mucilloid (Metamucil) 1 packet PO DAILY PRN PRN PRN Reason: Constipation Senna/Docusate Sodium (Senokot-S, Luzmaria-Colace) 2 tablet PO BID PRN PRN PRN Reason: Constipation Sodium Chloride () 10 - 40 ml IV UD PRN PRN Reason: SALINE FLUSH Last Admin: 06/08/20 08:15 Dose: 10 ml Documented by: Sodium Chloride () 500 ml IV BOLUS PRN PRN Reason: VASO-VAGAL PROTOCOL Throat Lozenges (Cepacol Sore Throat Lozenge) 1 lozenge MUCOUS MEM Q2H PRN PRN PRN Reason: SORE THROAT Medical Necessity - Tobacco Use Smoking Status: Never smoker Tobacco Use: Non-smoker Assessment/Plan All Active Problems Chest pain (Acute) NSTEMI (non-ST elevated myocardial infarction) (Acute) LBBB (left bundle branch block) (Acute) MVP (mitral valve prolapse) (Acute) #1 [id number] will undergo a cardiac catheterization today, cardiology has been consulted and will follow patient #2 essential hypertension #3 hyperlipidemia Inpatient E&M: 77367 Subs Hosp L2
--- NOTE | 2020-06-08 16:59 | CL.I_ITS ---
Patient Name: CRUZITO BRUMFIELD Study Date: 06/08/2020 Performing: Umberto Shine MD Ht: 63 inches 160 cm : 1940 Wt: 130.2 lbs 59 kg Age: 79 Gender: female BSA: 1.61 PROCEDURE(S) PERFORMED [id number] W OR WO PTCA, SINGLE CORONARY ARTERY [id number], EACH ADD'L CORONARY ART, SAME MAJOR CLINICAL PROFILE AND CO-MORBIDITIES Indications: Suspected CAD Heart Failure: None Stress/Imaging Stress/Image Study Performed: No Angina Classification Anginal Classification w/in 2 Weeks: CCS III CAD Presentations: Non-STEMI. CONCLUSIONS Successful PCI with Bare metal stent and PTCA to the LAD/D1 with BMS to LAD and PTCA alone to D1 RECOMMENDATIONS DESCRIPTION OF PROCEDURE The patient arrived to the procedure lab. The risks and benefits of the procedure as well as a full d escription of our services here and current unavailability of surgical backup were fully explained to the patient and/or their significant other prior to the catheterization. The Timeout was completed, verifying the correct patient and procedure. The patient's procedural site was prepped and draped in the usual fashion. Local anesthetic was given subcutaneously to right radial region with Lidocaine 2% Using a modified Seldinger technique,arterial access was obtained via the right radial artery, a 6Fr sheath was inserted. Right Coronary Artery selective angiography was then performed in multiple view s using a 5 Fr. 4.0 Sewell catheter. Left Coronary Artery selective angiography was performed in multi ple views using a 5 Fr. 4.0 Sewell catheter. Left Ventriculography was performed in SAMANO projection usi ng a 5 Fr. Pigtail catheter. LV to AO pullback pressures were then recorded. XB 3.0 Guide catheter was inserted and engaged into the LCA. Runthrough Guide wire was advanced t o the LAD. BMW Guide wire was inserted as a sherri wire in Diagonal branch Euphora 2.5x15 Balloon cath eter was inserted. PTCA balloon inflated at 8 atms for 13 secs. Angiogram performed post balloon dila tation. Rebel 3.0x20 Bare Metal stent was inserted Angiogram performed post stent deployment. Emerge 2.00x12 Balloon catheter was advanced across lesion in the graft to the 1st Diagonal. NC Euphora 3.0x 12 Balloon catheter was inserted. Emerge 1.50x8 Balloon catheter was inserted. PTCA balloon inflated at 10 atms for 25 secs. Emerge 2.00x12 Balloon catheter was inserted. Angiogram performed post balloo n dilatation. The arterial sheath was pulled and a TR Band was applied for hemostasis w/ 11ml air INTERVENTION INFORMATION LESION SITE: 1st Diagonal (Ostial) Lesion Complexity: High/C, chronic total occlusion: No, lesion at bifurcation: Yes, thrombus present: No, lesion length: 8 mm, culprit lesion: Yes, Previously treated lesion: No Pre Stenosis: 80 % Pre intervention DANISH flow: 3 PROCEDURE: Balloon Angioplasty PTCA of this lesion was performed as part of the PCI of the LAD/D1 bifurcation (provisional stenting approach). Post Stenosis: 70 % Post intervention DANISH flow: 3 Lesion Devices: Guajardo .014 BMW [place] Straight 190cm Cardinal 6 Fr XB3.0 100cm Guide Catheter Medtronic SC EUPHORA RX 2.5x15 BALLOON Marcos Sci EMERGE MR 2.00x12 BALLOON Marcos Sci EMERGE MR 1.50x08 BALLOON LESION SITE: LAD (Proximal) Lesion Complexity: High/C, chronic total occlusion: No, lesion at bifurcation: Yes, thrombus present: No, lesion length: 15 mm, culprit lesion: Yes, Previously treated lesion: No Pre Stenosis: 80 % Pre intervention DANISH flow: 3 PROCEDURE: Bare Metal Stent with pre and post dilatation. Post Stenosis: 0 % Post intervention DANISH flow: 3 Lesion Devices: Terumo .014 Runthrough Extra Floppy 180cm straight Marcos Sci Rebel MR BMS 3.00x20 Medtronic NC EUPHORA RX 3.0x12 BALLOON COMPLICATIONS No Complications PROCEDURE MEDICATIONS Versed 1 mg IV Fentanyl 50 mcg IV Versed 1 mg IV Fentanyl 50 mcg IV Oxygen: 2 L/min via nasal cannula Heparin diluted in 23cc Heparinized saline. Patient given 10cc IA of this solution. 06/08/2020 11:18: 09 Heparin 4000 unit(s) IV 06/08/2020 12:05:16 Nitro 200 mcg IC 06/08/2020 12:39:17 Verapamil 2.5mg, Ntg 100mcgs, 2000 units of Heparin diluted in 23cc Heparinized saline. Patient give n 10cc IA of this solution. 06/08/2020 11:18:09 SUMMARY OF HEMODYNAMIC DATA Time AIR REST ECG 10:49:09 AO 116/72 (92) SA 11:21:38 LV 162/-6, 18 11:27:16 LV 161/-6, 14 11:27:17 LV 148/-5, 15 11:28:07 LVp 148/-7, 11 11:28:15 AOp 152/66 (103) 11:28:20 AO 146/65 (97) 12:11:13 Signed By Umberto Shine MD On 06/08/2020 4:59:01 PM Umberto Shine MD
[2020-06-08] MEDS: Atorvastatin Calcium 20 MG Tablet PO (21:28)
[2020-06-08] MEDS: Famotidine 20 MG Tablet PO (21:28)
[2020-06-08] MEDS: MELATONIN 3 MG TABLET PO (21:28)
[2020-06-09] VITALS (9 sets, daily range): BP systolic 120–130; BP diastolic 55–63; PULSE 61–80; RESP 16–17; TEMP 36.6–37; O2SAT 96–98
[2020-06-09 06:12] LABS: Hemoglobin 13.1 g/dL (12.0-15.0); Mean Corpuscular Volume 93.8 fL (81-99); Mean Platelet Vol. 8.4 fl (6.2-12.0); Platelet Count 236 K/mm3 (150-450); RBC Distribution Width CV 12.2 % (11.6-14.6); RBC Distribution Width SD 42.1 fl (35.1-43.9); Red Blood Count 4.37 M/mm3 (4.2-5.4); White Blood Count 8.4 K/mm3 (4.4-11.0)
[2020-06-09 06:38] LABS: Albumin, Serum 3.3 g/dL (3.2-5.0); BUN 15 mg/dL (7-18); BUN/Creat Ratio 20.1 RATIO (10-20); Creatinine, Serum 0.74 mg/dL (0.55-1.02); EST Glomerular Filtration Rate 80 mL/min (>60); Est Glom Filt Rate - Afr Amer 97 mL/min (>60); Estimated Creatinine Clearance 38.97 ml/min; Globulin 3.3 g/dL (2.2-4.2); Glucose 91 mg/dL (74-106); Protein, Total 6.6 g/dL (6.4-8.2)
[2020-06-09 06:39] LABS: AST(SGOT) 23 U/L (15-37); Alanine Aminotransfer ALT/SGPT 20 U/L (13-56); Alkaline Phosphatase 90 U/L (45-117); Anion Gap 6 (5-15); Calcium,Total 8.8 mg/dL (8.5-10.1); Chloride 108 mmol/L (98-107); Potassium 3.9 mmol/L (3.5-5.1); Sodium Level 141 mmol/L (136-145)
--- NOTE | 2020-06-09 09:54 | PCM.PN.CARD ---
Subjectve: The patient is awake and alert. She denies ongoing chest discomfort or difficulty breathing. Objective: Vital Signs Temp Pulse Resp BP Pulse Ox 97.8 F 66 17 129/57 H 98 06/09/20 09:48 06/09/20 09:48 06/09/20 09:48 06/09/20 09:48 06/09/20 09:48 Oxygen Delivery Method Room Air Weight: 130 lb 3.2 oz Body Mass Index (BMI) 23.1 Intake and Output for Last 24 Hours 06/07/20 06/08/20 06/09/20 23:59 23:59 23:59 Intake Total 360 / 710 2608.00 / 2608.00 0 / 0 Balance 360 / 710 2608.00 / 2608.00 0 / 0 General: Awake, Alert, Oriented x 3, Cooperative, No Acute Distress HEENT: Atraumatic, Normocephalic, PERRL, EOMI, Sclera Non Icteric Neck: Supple, Good ROM, No JVD Lungs: Clear to auscultation Cardiovascular: Regular Rhythm, Normal S1, Normal S2 Vascular: Normal Radial Pulses Abdomen: Bowel Sounds Present, Soft, Non Tender Extremities: No edema, - - Right upper extremity: Right forearm: Slight ecchymoses: Right radial artery pulse 2+/4+ without obvious bruit Neurological: No Focal Motor or Sensory Deficit Psych/Mental Status: Appropriate 06/09/20 06:04: WBC 8.4, RBC 4.37, Hgb 13.1, Hct 41.0, MCV 93.8, MCH 30.0, MCHC 32.0, Plt Count 236, MPV 8.4 06/09/20 06:04: Sodium 141, Potassium 3.9, Chloride 108 H, Carbon Dioxide 27.0, Anion Gap 6, BUN 15, Creatinine 0.74, Est GFR (MDRD) Af Amer 97, Est GFR (MDRD) Non-Af 80, BUN/Creatinine Ratio 20.1 H, Glucose 91, Calcium 8.8, Total Bilirubin 1.00 Rhythm: Sinus rhythm EKG: Sinus rhythm; left axis deviation; left bundle branch block ECHO: Interpretation Summary Mild segmental systolic dysfunction (see wall motion). The estimated ejection fraction is 50 %. Septal motion consistent with IVCD. Equivocal mitral valve prolapse. Mild (1+) mitral valve insufficiency. Mild to moderate (1-2+) tricuspid valve insufficiency. Mild (1+) aortic valve insufficiency. Mild (1+) pulmonic valve insufficiency. Right ventricular systolic pressure estimated to be 27 mmHg. No evidence for diastolic dysfunction. Cardiac Cath: CONCLUSIONS Normal Left Ventricular End Diastolic Pressure Segmented LV systolic dysfunction- Mild LVEF: by LV gram 55 % [place] Multivessel CAD RECOMMENDATIONS Risk factor modification Medical therapy Consult Interventional Cardiology: for consideration of PCI CORONARY ANGIOGRAPHY DOMINANCE: Right Dominant LEFT HEART ASSESSMENT Left Ventricular Ejection Fraction: by LV Gram 55 % Inferior Mid Hypokinesis Normal Left Ventricular End Diastolic Pressure LVEDP: 14 mmHg LEFT MAIN: Angiographically normal LEFT ANTERIOR DESCENDING ARTERY: PROX LAD: long: smooth: 50 - 75 % Stenosis MID LAD: 50 % Stenosis, Mild luminal irregularities DIAGONAL 1: Ostial - 85 % Stenosis CIRCUMFLEX ARTERY: Angiographically normal RIGHT CORONARY ARTERY: Mild luminal irregularities PROX RCA: diffuse: 10 - 25 % Stenosis DISTAL RCA: eccentric: smooth: 25 % Stenosis AORTIC ROOT: Angiographically normal PCI: CONCLUSIONS Successful PCI with Bare metal stent and PTCA to the LAD/D1 with BMS to LAD and PTCA alone to D1 Medical Necessity - Tobacco Use Smoking Status: Never smoker Tobacco Use: Non-smoker Assessment/Plan 1. Non-ST segment elevation [place] The patient presents with symptoms concerning for exertional angina pectoris and subsequent abnormal troponin I levels concerning for non-ST segment elevation [place] superimposed upon the finding of an abnormal ECG with a left bundle branch block pattern. She has undergone additional noninvasive and invasive evaluation. This did lead to LAD PTCA/stent and diagonal branch PTCA. She appears to be stable at this time. She will continue medical therapy such as aspirin, antiplatelets, nitrates as needed, beta-blockers, antihypertensive agents as needed, and lipid-lowering agents. She will need continued outpatient cardiovascular follow-up. She is agreeable to enroll in outpatient cardiac rehabilitation. 2. Abnormal ECG/left bundle branch block pattern The present time she will continue cardiac rhythm monitoring and follow-up deemed appropriate. 3. Mitral valve prolapse She states she has a history of mitral valve prolapse. She states she was evaluated many years ago with a transthoracic echocardiogram. Her echocardiographic findings are as noted. She will continue with future outpatient cardiovascular follow-up. 4. Hyperlipidemia Her lipid labs were evaluated. Her triglycerides are somewhat elevated. Will continue cardiovascular risk factor evaluation/medical therapy as deemed appropriate. 5. Hypertension Her blood pressure will be monitored. She can be treated medically as deemed appropriate. Comment: The patient's case has been discussed with the patient and previously with [facility] hospitalist team. This note was generated using a voice recognition system and there may be incorrect words, spelling or punctuation that were not noted when reviewing the office note prior to saving.
[2020-06-09] MEDS: Aspirin E.C. 81 MG Tablet PO (09:58)
[2020-06-09] MEDS: Losartan Potassium 50 MG Tablet 25 MG PO (09:58)
[2020-06-09] MEDS: Clopidogrel Bisulfate 75 MG Tablet PO (09:59)
[2020-06-09] MEDS: Famotidine 20 MG Tablet PO (09:59)
--- NOTE | 2020-06-09 10:00 | EKG12_ITS ---
Test Reason : AM EKG Blood Pressure : / mmHG Vent. Rate : 068 BPM Atrial Rate : 068 BPM P-R Int : 148 ms QRS Dur : 120 ms QT Int : 424 ms P-R-T Axes : 072 -63 099 degrees QTc Int : 450 ms Normal sinus rhythm Left axis deviation Left ventricular hypertrophy with QRS widening and repolarization abnormality Inferior infarct , age undetermined Abnormal ECG When compared with ECG of 08-JUN-2020 13:18, MANUAL COMPARISON REQUIRED, DATA IS UNCONFIRMED Confirmed by JORGE AUSTIN, [place] ([id number]), editor index VIET ROMAN ([id number]) on 06/22/2020 1:34:02 PM Referred By: SARA Confirmed By:ABI PATEL MD
[2020-06-09] MEDS: Metoprolol Tartrate 25 MG Tablet 12.5 MG PO (10:02)
--- NOTE | 2020-06-09 10:21 | PCM.DC ---
- Discharge Diagnoses Current Active Problems: Current Active and Chronic Problems Chest pain (Acute) HTN (hypertension) (Chronic) HLD (hyperlipidemia) (Chronic) Anxiety (Chronic) Insomnia (Chronic) NSTEMI (non-ST elevated myocardial infarction) (Acute) LBBB (left bundle branch block) (Acute) MVP (mitral valve prolapse) (Acute) You will use the following diet at home:: Cardiac Discharge Activity: Return to Normal Activity Call your doctor if you observe: Shortness of breath, Dizziness, Fainting spells, Chest pain Instructions: Enoxaparin Sodium (Porcine) Solution for injection, Clopidogrel Bisulfate Oral tablet, Taking Plavix Allergies/Adverse Reactions: Allergies No Known Allergies Allergy (Verified 06/07/20 11:08) Medications to take at Discharge Atorvastatin Calcium [Lipitor] 20 mg PO QHS 06/07/20 Losartan Potassium [Cozaar] 25 mg PO DAILY 06/07/20 Aspirin E.C. [Ecotrin] 81 mg PO DAILY@0800 #60 tab 06/09/20 Clopidogrel Bisulfate [Plavix] 75 mg PO DAILY #60 tab 06/09/20 Metoprolol Tartrate [Lopressor (beta len)] 12.5 mg PO BID #60 tab 06/09/20 The following prescriptions were given: Aspirin E.C. [Ecotrin] 81 mg PO DAILY@0800 #60 tab Transmission Status: Pending to [id number] Metoprolol Tartrate [Lopressor (beta len)] 12.5 mg PO BID #60 tab Transmission Status: Pending to [facility] Clopidogrel Bisulfate [Plavix] 75 mg PO DAILY #60 tab Transmission Status: Pending to [id number] Primary Care Physician: Rogelio Addison MD [Primary Care Provider] - Please follow up with your Primary Care Physician in: 1 Week Test Results: Test results from this visit will be discussed in further detail at your follow-up appointment, if applicable. Please Follow Up With: Tj Vines MD When: 1 Week Proposed Discharge Date: 06/09/20
--- NOTE | 2020-06-09 10:23 | PCM.DC.SUM ---
<Mily Velázquez - Last Filed: 06/09/20 10:36> Discharge Date and Diagnosis Date of Admission: 06/07/20 Date of Discharge: 06/09/20 - Primary Discharge Diagnosis Acute Problems: Active Problems 1. NSTEMI 2. CAD 3. Mitral valve prolapse 4. Hypertension 5. Hyperlipidemia 6. Left bundle branch block 7. Anxiety - Secondary Discharge Diagnosis Chronic Problems: Chronic Problems HTN (hypertension) (Chronic) HLD (hyperlipidemia) (Chronic) Anxiety (Chronic) Insomnia (Chronic) Hospital Course and Treatment Imaging Results: Diagnostic Data Chest X-Ray 06/07/20 11:36 IMPRESSION: Hyperinflation. Electronically Signed: Ton Machuca, at 12:21 EDT , Service support , Dr. Vines- Cardiology Operations: None Procedures: Cardiac catheterization Summary of Care Provided: The patient is a 79 year old F admitted 06/07/2020 due to chest pain. 1. NSTEMI-status post LAD PTCA/stent and diagonal branch PTCA 06/08/2020. Continue aspirin, Plavix, statin, beta-mono, losartan. Echocardiogram demonstrates an EF of 50%, mild mitral valve insufficiency, mild to moderate tricuspid valve insufficiency, mild aortic valve insufficiency. Follow-up in 1 week with cardiology. 2. CAD-status post PTCA as noted above. Continue medical management. 3. Mitral valve prolapse-mild as noted on echo above. 4. Hypertension-stable, continue losartan and metoprolol. 5. Hyperlipidemia-continue statin. 6. Left bundle branch block 7. Anxiety-not on regimen. Encouraged outpatient follow-up with PCP. Patient seen and examined prior to discharge. Physical assessment as noted below. Patient is stable for discharge with follow up recommendations as noted above. This patient was seen by FESTUS Delgado under the supervision of Dr. Eason. - Physical Exam Vitals/I&O's: Vital Signs Temp Pulse Resp BP Pulse Ox 97.8 F 66 17 129/57 H 98 06/09/20 09:48 06/09/20 10:02 06/09/20 09:48 06/09/20 10:02 06/09/20 09:48 Oxygen Delivery Method Room Air Weight: 130 lb 3.2 oz Body Mass Index (BMI) 23.1 Intake and Output for Last 24 Hours 06/07/20 06/08/20 06/09/20 23:59 23:59 23:59 Intake Total 360 / 710 2608.00 / 2608.00 0 / 0 Balance 360 / 710 2608.00 / 2608.00 0 / 0 General: Alert, Oriented x3, Cooperative HEENT: Atraumatic, PERRLA, EOMI, Normocephalic Neck: Supple, No JVD, Negative Carotid Bruits Lungs: Clear to auscultation, Normal air movement Cardiovascular: Regular rate, Regular Rhythm, Normal S1, Normal S2 Abdomen: Bowel Sounds Present, Soft, Non Tender, Non-Distended Extremities: No clubbing, No cyanosis, No edema, Capillary Refill Less than 3 Seconds Skin: No rashes, No breakdown Musculoskeletal: No Tenderness to Palpation of Joints or Extremities Neurological: Cranial nerves II-XII grossly intact, Neuro grossly intact Psych/Mental Status: Normal Affect, Appropriate Laboratory Results 06/09/20 06:04: WBC 8.4, RBC 4.37, Hgb 13.1, Hct 41.0, MCV 93.8, MCH 30.0, MCHC 32.0, RDW Std Deviation 42.1, RDW Coeff of Edda 12.2, Plt Count 236, MPV 8.4 06/09/20 06:04: Sodium 141, Potassium 3.9, Chloride 108 H, Carbon Dioxide 27.0, Anion Gap 6, BUN 15, Creatinine 0.74, Estim Creat Clear Calc 38.97, Est GFR (MDRD) Af Amer 97, Est GFR (MDRD) Non-Af 80, BUN/Creatinine Ratio 20.1 H, Glucose 91, Calcium 8.8, Total Bilirubin 1.00, AST 23, ALT 20, Alkaline Phosphatase 90, Total Protein 6.6, Albumin 3.3, Globulin 3.3, Albumin/Globulin Ratio 1.0 Current Medications Acetaminophen (Tylenol) 650 mg PO Q6H PRN PRN PRN Reason: Pain Score 1-10/Temp > 100.7 F Al Hydroxide/Mg Hydroxide (Mylanta Ii) 30 ml PO Q6H PRN PRN PRN Reason: Gastric Burning Albuterol Sulfate (Ventolin Aerosols) 2.5 mg INHALATION Q2H PRN PRN PRN Reason: Dyspnea, wheezing Aspirin (Ecotrin) 81 mg PO DAILY@0800 [facility] Last Admin: 06/09/20 09:58 Dose: 81 mg Documented by: Atorvastatin Calcium (Lipitor) 20 mg PO QHS [facility] Last Admin: 06/08/20 21:28 Dose: 20 mg Documented by: Atropine Sulfate () 0.5 mg IV UD PRN PRN Reason: HR <50 bpm Buspirone HCl (Buspar) 5 mg PO BID [facility] Last Admin: 06/09/20 09:56 Dose: Not Given Documented by: Clopidogrel Bisulfate (Plavix) 75 mg PO DAILY [facility] Last Admin: 06/09/20 09:59 Dose: 75 mg Documented by: Enoxaparin Sodium (Lovenox) 60 mg SC Q12@0600,1800 [facility] Last Admin: 06/09/20 06:58 Dose: Not Given Documented by: Famotidine (Pepcid) 20 mg PO BID [facility] Last Admin: 06/09/20 09:59 Dose: 20 mg Documented by: Guaifenesin (Robitussin) 20 ml PO Q4H PRN PRN PRN Reason: COUGH Heparin Sodium (Beef Lung) (Heparin 500 Unit/5 Ml (100/Ml)) 500 unit IV UD PRN PRN Reason: HEPARIN FLUSH Hydralazine HCl (Apresoline Iv) 10 mg IV Q4H PRN PRN PRN Reason: SBP > 160 Sodium Chloride () 250 mls @ 15 mls/hr IV .[id number] PRN PRN Reason: Saline Flush Sodium Chloride () 250 mls @ 15 mls/hr IV .[id number] PRN PRN Reason: Additional IVPB Infusion Sodium Chloride () 1,000 mls @ 15 mls/hr IV .Q48H [facility] Last Admin: 06/08/20 10:30 Dose: Not Given Documented by: Sodium Chloride () 1,000 mls @ 60 mls/hr IV .[id number] [facility] Last Admin: 06/09/20 05:46 Dose: Not Given Documented by: Labetalol HCl (Trandate) 5 mg IV X1 PRN PRN Reason: SBP > 160 when pulling sheath Stop: 06/10/20 12:45 Losartan Potassium (Cozaar) 25 mg PO DAILY [facility] Last Admin: 06/09/20 09:58 Dose: 25 mg Documented by: Magnesium Hydroxide (Milk Of Magnesia) 30 ml PO DAILY PRN PRN PRN Reason: Constipation Melatonin (Melatonin) 3 mg PO QHS [facility] Last Admin: 06/08/20 21:28 Dose: 3 mg Documented by: Metoprolol Tartrate (Lopressor (Beta Mono)) 12.5 mg PO BID [facility] Last Admin: 06/09/20 10:02 Dose: 12.5 mg Documented by: Morphine Sulfate () 2 mg IV Q3H PRN PRN PRN Reason: Pain Score 6-10/10 Nitroglycerin (Nitrostat) 0.4 mg SUBLINGUAL Q5M PRN PRN Reason: CARDIAC/CHEST PAIN Ondansetron HCl (Zofran) 4 mg IV Q8H PRN PRN PRN Reason: NAUSEA/VOMITING Oxycodone HCl (Oxyir) 5 mg PO Q4H PRN PRN PRN Reason: Pain Score 4-5/10 Prochlorperazine Edisylate (Compazine Iv) 5 mg IV Q4H PRN PRN PRN Reason: Breakthrough Nausea/Vomiting Psyllium Hydrophilic Mucilloid (Metamucil) 1 packet PO DAILY PRN PRN PRN Reason: Constipation Senna/Docusate Sodium (Senokot-S, Luzmaria-Colace) 2 tablet PO BID PRN PRN PRN Reason: Constipation Sodium Chloride () 10 - 40 ml IV UD PRN PRN Reason: SALINE FLUSH Last Admin: 06/08/20 08:15 Dose: 10 ml Documented by: Sodium Chloride () 500 ml IV BOLUS PRN PRN Reason: VASO-VAGAL PROTOCOL Throat Lozenges (Cepacol Sore Throat Lozenge) 1 lozenge MUCOUS MEM Q2H PRN PRN PRN Reason: SORE THROAT Discharge Diet: Low fat/ Low Cholesterol Discharge Activity: Return to Normal Activity Call your doctor if you observe: Shortness of breath, Dizziness, Fainting spells, Chest pain Home Medications: Medications to take at Discharge Atorvastatin Calcium [Lipitor] 20 mg PO QHS 06/07/20 Losartan Potassium [Cozaar] 25 mg PO DAILY 06/07/20 Aspirin E.C. [Ecotrin] 81 mg PO DAILY@0800 #60 tab 06/09/20 Clopidogrel Bisulfate [Plavix] 75 mg PO DAILY #60 tab 06/09/20 Metoprolol Tartrate [Lopressor (beta mono)] 12.5 mg PO BID #60 tab 06/09/20 Nitroglycerin (INPATIENT USE) [Nitrostat] 0.4 mg SUBLINGUAL Q5M PRN #10 tab.subl 06/09/20 Following Prescriptions Were Given to Patient: Aspirin E.C. [Ecotrin] 81 mg PO DAILY@0800 #60 tab [id number] Metoprolol Tartrate [Lopressor (beta mono)] 12.5 mg PO BID #60 tab Transmission [facility]: [id number] Nitroglycerin (INPATIENT USE) [Nitrostat] 0.4 mg SUBLINGUAL Q5M PRN #10 tab.subl PRN Reason: Cardiac/Chest Pain Transmission [facility] Clopidogrel Bisulfate [Plavix] 75 mg PO DAILY #60 tab Transmission Status[id number] Primary Care Physician: Rogelio Addison MD [Primary Care Provider] - Please follow up with your Primary Care Physician in: 1 Week Please Follow Up With: Tj Vines MD When: 1 Week Patient Instructions: Enoxaparin Sodium (Porcine) Solution for injection, Clopidogrel Bisulfate Oral tablet, Taking Plavix Disposition: Home Minutes spent on discharge:: 35 Patient Condition:: Stable Medical Necessity - Tobacco Use Smoking Status: Never smoker Tobacco Use: Non-smoker Meaningful Use Info Meaningful Use Diagnoses (Choose all that apply): AMI - AMI/Post PCI/Angioplasty Aspirin given w/in 24hrs of arrival?: Yes ASA at discharge?: Yes Statins at discharge?: Yes Olivier/ARB at discharge?: Yes Beta Mono at discharge?: Yes Done w/ Acute PA measure.: Yes <Yumi,[place] - Last Filed: 06/09/20 13:49> Discharge Date and Diagnosis - Secondary Discharge Diagnosis Chronic Problems: Chronic Problems HTN (hypertension) (Chronic) HLD (hyperlipidemia) (Chronic) Anxiety (Chronic) Insomnia (Chronic) Hospital Course and Treatment Summary of Care Provided: This patient was seen in conjunction with Mily Velázquez NP. I have independently interviewed and examined the patient and reviewed pertinent historical, laboratory, and other data. Please refer to her note for patient's presentation, findings, and recommendations. 79-year-old female with past medical history of hypertension, hyperlipidemia who was admitted with substernal chest pain with radiation to the left upper extremities. Patient's vitals were stable. EKG showed NSR, LBBB, no prior EKG to compare. She had elevated troponin with a peak of 0.219. She was managed on a telemetry floor as NSTEMI. She underwent cardiac catheterization 06/08/20, status post stents to the LAD and diagonal branch. She was monitored overnight with no new events. On the day of discharge, she was seen and examined. She denied any new complains. No chest pain, dizziness, palpitations. Physical Exam: Gen: Comfortable, not pale, not jaundiced, alert oriented x3 CVS:HS I +II, regular, no murmurs RESP: CTA GI: BS present and normal, nontender, no palpable organs EXT:No edema - Physical Exam Vitals/I&O's: Vital Signs Temp Pulse Resp BP Pulse Ox 97.8 F 61 16 130/61 H 96 06/09/20 11:42 06/09/20 11:42 06/09/20 11:42 06/09/20 11:42 06/09/20 11:42 Oxygen Delivery Method Room Air Weight: 59.058 kg Body Mass Index (BMI) 23.1 Intake and Output for Last 24 Hours 06/07/20 06/08/20 06/09/20 23:59 23:59 23:59 Intake Total 360 / 710 2608.00 / 2608.00 0 / 0 Balance 360 / 710 2608.00 / 2608.00 0 / 0 Laboratory Results 06/09/20 06:04: WBC 8.4, RBC 4.37, Hgb 13.1, Hct 41.0, MCV 93.8, MCH 30.0, MCHC 32.0, RDW Std Deviation 42.1, RDW Coeff of Edda 12.2, Plt Count 236, MPV 8.4 06/09/20 06:04: Sodium 141, Potassium 3.9, Chloride 108 H, Carbon Dioxide 27.0, Anion Gap 6, BUN 15, Creatinine 0.74, Estim Creat Clear Calc 38.97, Est GFR (MDRD) Af Amer 97, Est GFR (MDRD) Non-Af 80, BUN/Creatinine Ratio 20.1 H, Glucose 91, Calcium 8.8, Total Bilirubin 1.00, AST 23, ALT 20, Alkaline Phosphatase 90, Total Protein 6.6, Albumin 3.3, Globulin 3.3, Albumin/Globulin Ratio 1.0 Inpatient E&M: [id number] Disch Hosp
--- NOTE | 2020-06-09 10:37 | CASEMGMT ---
RN CM TANK TRUCK OPERATOR CM to room to meet with patient for initial transition planning/care coordination assessment. RN APRYL introduced self and role at [facility]. Pt voices understanding and consents to assessment at this time. Pt resting in bed in no distress at this time. @ bedside. Pt is A/O at this time and answers all questions appropriately. Care providers, pharmacy, and demographics verified/updated at this time. PCP: Dr Addison Specialists: Dr Rivas--gastroenterology Preferred Pharmacy: [facility] Insurance: [facility] [employer] Prescription Benefit: Yes--[employer]. Living Will/HPOA: Has both LW and Healthcare POA, who is her , Uri. LW on file @ [facility], but POA is not. Pt/ made aware. LNOK: Living Arrangements: Lives w/her in 2-story home with basement. Denies difficulty w/stairs. Independent w/ADL's and IADL's Transportation: Pt states drives self and states no transportation concerns at this time. also drives DME: Denies using any DME and denies needs. HHC/SNF: No history of either and no needs identified. Pt wishes to return home and states has no concerns with going home at time of discharge. CM to follow for any discharge planning/needs. Pt voices no concerns/needs at this time. Advised pt to ask for CM if any questions/concerns/needs arise. Voices understanding. PLAN: Home PCI done 06/08. Pt will be discharged home on Clopidogrel. Nathanael RHODES RN, CM
== END 2020-06-09 11:47 | disposition home or self-care (01) | DRG 249 ==
LOC: ED 12:56 → PCU 13:40
PROVIDERS: Specialist; Admitting Provider Family Medicine; Emergency Provider Emergency Medicine; PCP Family Medicine; Visit Provider Internal Medicine
DX: I21.4 Non-ST elevation (NSTEMI) myocardial infarction (principal); I25.119 Atherosclerotic heart disease of native coronary artery with unspecified angina pectoris; I44.7 Left bundle-branch block, unspecified; I34.1 Nonrheumatic mitral (valve) prolapse; I10 Essential (primary) hypertension; G47.00 Insomnia, unspecified; F41.9 Anxiety disorder, unspecified; E78.5 Hyperlipidemia, unspecified; Z79.899 Other long term (current) drug therapy
CPT/HCPCS: 36415; 71045; 80048; 80053; 80061; 83735; 84484; 85025; 85027; 85610; 85730; 92921; 92928; 93005; 93306; 93458; 99152; 99153; 99285; J7030; Q9967; A4216; C1725; C1769; C1876; C1887; C1894

== ENCOUNTER → 2020-07-09 12:51 | Outpatient (CLI) | payer MEDICARE, OTHER, SELFPAY ==
[2020-06-07 14:05] VITALS: BMI 23.1
[2020-06-15 11:54] VITALS: BMI 22.8
--- NOTE | 2020-07-09 12:56 | PCM.CR.HP2 ---
CR - History & Physical - General Arrival date:: 07/09/20 Arrival time:: 12:57 Date of Referral:: 06/11/20 Date of CR Evaluation:: 07/09/20 Referring Physician: Dr. Tj Vines Primary Diagnosis: Z95.5 PCI with stenting - History of Present Cardiac Event Onset Date: Enter Onset Date of cardiac illnesses in Comment field below PTCA or coronary stenting:: Yes - 06/08/2020 - Medications Home Medications: Ambulatory Orders Medication Instructions Recorded aspirin 81 mg tablet,delayed 81 mg PO DAILY@0800 #90 tab 06/15/20 release atorvastatin 40 mg tablet 40 mg PO QHS tab 06/15/20 buspirone 5 mg tablet 5 mg PO BID PRN tab 06/15/20 clopidogrel 75 mg tablet 75 mg PO DAILY #90 tab 06/15/20 latanoprost 0.005 % eye drops OPHTHALMIC 06/15/20 losartan 50 mg tablet 25 mg PO DAILY #45 tab 06/15/20 metoprolol tartrate 25 mg tablet 12.5 mg PO BID #90 tab 06/15/20 nitroglycerin 0.4 mg sublingual 0.4 mg SUBLINGUAL Q5M PRN #25 tab 06/15/20 tablet - Allergies Allergies/Adverse Reactions: Allergies strawberry Allergy (Intermediate, Verified 06/15/20 11:57) hives - Sleep Disorder Evaluation Hx of Sleep Apnea: No Do you snore loudly (louder than talking or can be heard through closed doors)?: No Do you often feel tired/ fatigued/ sleepy during daytime?: No Has anyone observed you stop breathing during sleep?: No History of Hypertension (for STOP score): Yes STOP Results: Negative Advanced Directives - Advanced Directives Power of Veterinary Technician Instructor: Yes Living Will: Yes Advance Directives Information Provided: Yes Advance Directives on File: Yes DNR Order?:: No Past Medical History - Covid-19 Screening Fever: No Unexplained muscle aches: No Current respiratory symptoms: No Upper respiratory infections symptoms: No Gastro-intestinal symptoms: No Pmd-Wbxj-Hvqefd symptoms: No Has tested positive for COVID-19 in last 30 days: No Had contact w/person w/symptoms or Covid-19 (+) last 14 days: No Has High Risk Exposures ID'd by Health dept/Inf Control team: No 65 years or older:: Yes Lives in Assisted Living facility:: No Has a chronic lung disease or moderate to severe asthma:: No Has a serious heart condition:: Yes Immunocompromised:: No Severely obese (Body Mass Index of 40 or higher):: No Diabetic:: No Has chronic kidney disease undergoing dialysis:: No Has liver disease:: No - Past Medical Illness Medical History: Past Medical History (Last Updated 06/15/20 @ 12:01 by Mariah Gill) Presence of stent in coronary artery (Chronic) Onset Date: ~06/08/20 Z95.5 Successful PCI with Bare metal stent and PTCA to the LAD/D1 with BMS to LAD and PTCA alone to D1 06/08/20 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 HTN (hypertension) (Chronic) I10 HLD (hyperlipidemia) (Chronic) E78.5 Anxiety (Chronic) F41.9 Insomnia (Chronic) G47.00 NSTEMI (non-ST elevated myocardial infarction) (Chronic) I21.4 LBBB (left bundle branch block) (Chronic) I44.7 MVP (mitral valve prolapse) (Chronic) I34.1 - Past Surgical History Surgical History: Past Surgical History (Last Updated 06/15/20 @ 12:01 by Mariah Gill) Presence of coronary angioplasty implant and graft Onset Date: ~06/08/20 Z95.5 Successful PCI with Bare metal stent and PTCA to the LAD/D1 with BMS to LAD and PTCA alone to D1 06/08/20 History of bilateral cataract extraction Z98.41, Z98.42 History of tonsillectomy Z90.89 Surgical History: cataract, tonsillectomy - Family History Summary Family History: Family History (Last Updated 06/15/20 @ 12:02 by Mariah Gill) Father Myocardial infarction Mother , 73 Myocardial infarction Brother Myocardial infarction, Onset Age: 52 Sister CAD (coronary artery disease) stents Social History - Smoking History Smoking Status: Never smoker Hx Tobacco Use: No Hx Smoking Exposure: No - Alcohol Use Alcohol Usage: Yes - socially - Substance Abuse Hx Substance Use: No - Occupation Occupation (List type of work in comments):: Retired - Hobbies, Recreation, Social Activities Hobbies: Sewing, Reading, Walking Recreational Activities: I am able to engage in all my recreational activities Social Environment - Status Marital Status: - Current Living Arrangements Living Environment:: Spouse - Children How many children do you have?: 3 Do any of your children live nearby?: Yes - Safety Do you feel safe in your surroundings?: Yes - Assistance Do you need any assistance at home?: none Review of Systems - Review of Systems Hints: Right click = Denies (Slash). Left click = Reports (Reynolds) Review of Present Symptoms: Reports: Fatigue, Heart Arrhythmia/Irregularities, Appetite - Normal, Appetite - Special Diet. Denies: Shortness of Breath at Rest, Shortness of Breath with Exertion, PVD, Operative Discomfort, Angina, Wound Healing, Dizziness/Lightheadedness, Sleep - Normal - doing better, Sexual Changes - Pain Is Patient Pain Free?: Yes Pain Location: none Risk Factor Assessment - Vital Signs Pulse Ox: 98 - Pulse Pulse Rate: 71 Pulse Rhythm: Regular - Hypertension Blood Pressure Sitting - Left Arm: 120/82 - Stress Stress: Recent - covid - Diabetes Nutrition Referral for Diabetes: No - Obesity Height: 5 ft 3 in Weight:: 58.513 kg Weight in Pounds: 129.0 lbs Body Mass Index (BMI): 22.8 Nutritional Referral for Obesity: No - Physical Inactivity Physical Inactivity: Reg Exercise 30 min/day - Risk Stratification Risk Guidelines: Lowest Risk: Risk Factor for Smoking, Moderate Risk: Risk Factor for Dyslipidemia, Risk Factor for Diabetes, Risk Factor for Obesity, Risk Factor for Hypertension, Risk Factor for Sedentary Lifestyle, Risk Factor for Depression - For Smoking Smoking Risk Guidelines: Smoking Low Risk: None or quit greater than 6 months ago. Smoking Moderate Risk: Smoker or quit 6 months or less ago. Smoking High Risk: Smoker - For Dyslipidemia Dyslipidemia Risk Guidelines: Low Risk: Moderate Risk: High Risk: 15-25% fat 25.1-29% fat >/= 30% fat. <7% sat fat 7-9% sat fat >9% sat fat. <150 mg chol 150-299 mg chol >/= 300 mg chol. LDL <100 LDL 100-129 LDL >/= 130. Chol/HDL ratio <5.0 Chol/HDL ratio 5.0-6.0 Chol/HDL ratio >6.0. Triglycerides <100 Triglycerides 100-149 Triglycerides >/= 150 - For Diabetes Mellitus Diabetes Risk Guidelines: Diabetes Low Risk: HgA1c <6.5% and/or FBG <120. Diabetes Moderate Risk: HgA1c 6.6-7.9% and/or FBG 120-180. Diabetes High Risk: HgA1c >/= 8% and/or FBG >180 - For Obesity/Overweight Obesity/Overweight Risk Guidelines: Obesity Low Risk: BMI <25.0. Obesity Moderate Risk: BMI 25-29.9. Obesity High Risk: BMI >/= 30.0 - For Hypertension Hypertension Risk Guidelines: Hypertension Low Risk: Systolic <120 and Diastolic <80. Hypertension Moderate Risk: Systolic 120-139 and Diastolic 80-89. Hypertension High Risk: Systolic >/= 140 and Diastolic >/= 90 - For Sedentary Lifestyle Sedentary Lifestyle Risk Guidelines: Sedentary Lifestyle Low Risk: >/= 1,500 kcal/week. Sedentary Lifestyle Moderate Risk: 700-1,499 kcal/week. Sedentary Lifestyle High Risk: < 700 kcal/week - For Depression Depression Risk Guidelines: Depression Low Risk: Not clinically depressed. Depression Moderate Risk: Mildly depressed. Depression High Risk: Clinically depressed - Family History Family History: Family History (Last Updated 06/15/20 @ 12:02 by Mariah Gill) Father Myocardial infarction Mother Myocardial infarction Brother Myocardial infarction, Onset Age: 52 Sister CAD (coronary artery disease) Motivation - Motivation to Participate On a scale of 1 to 10, how prepared are you to commit to attending program?: 10 What do you see as barriers to successfully being able to complete the program?: none What do you see as the benefits of succesfully completing the program? In other words, what do you hope to get out of participating in the program?: improved health Are there issues you are dealing with that will interfere with completing the program?: none Do you have a spouse or signficant other, family or friends who will help support you to complete the program?: spouse
--- NOTE | 2020-07-09 12:57 | CR.ITP_ITS ---
Diagnosis - General Information Admitting Diagnosis: Z95.5 PCI with stent Personal Learning Style:: Audio/Visual Barriers to Learning: Vision Impairment Stage of change r/t lifestyle modifications:: Contemplation Gave educational material for:: Treating Heart Disease, Emotions & Heart Disease, Stress Management & Relaxation, Sleep Disorders & Heart Disease, How The Heart Works, What it means to have Heart Disease, How Coronary Artery Disease is Diagnosed, Heart Procedures, What Heart Medications Do, Risk Factors & Modifications, Living an Active Life, Nutrition - Education/Goals Cardiac Rehabilitation Goals: 1. Maintain the individual as the primary focus of care. 2. To improve the patient's quality of life. 3. Identification of cardiac risk factors and provide cardiac risk factor management. 4. Enhance the psychosocial status of the patient. 5. Reconditioning enough to allow the patient to resume customary activities. 6. Control symptoms of cardiac disease Personal Goals: Initial Assessment: Improve management of stress and emotions, Improve knowledge of cardiac disease, Improve muscle strength and endurance, Improve diet and eating habits (eat healthier), Control risk factors (learn risk factor modification) Scale for measuring improvement of personal goals: Enter appropriate number in Comments. 2 = Unchanged. 3 = Slightly Better. 4 = Moderate Improvement. 5 = Met my Goal - Diagnosis & Disease Process 30 day Reassessments:: Not Met 30 day Reassessments:: Not Met 30 day Reassessments:: Not Met 30 day Reassessments:: Not Met Final Reassessments:: Not Met - Safety Referral to Physical Therapy: No Referral to [facility] Case Management: No Fall Risk Assessed:: Yes Assistive Devices:: None Exercise - Initial Assessment - Visit Date of Eval: 07/09/20 - initial eval Mets: Pre-: >7 METS for 30 minutes by discharge - Physician Prescribed Exercise Modalities: Treadmill, Biodyne, Rower, Airdyne, NuStep, SciFit Frequency: 3x/week for 12 weeks [36 sessions] Intensity: 60-80% of age predicted maximum heart rate reserve Current METSs:: 3.0 Target Heart Rate:: 93-121 EKG Type: sinus rhythm - Outcomes & Goals Goals:: Verbalizes understanding of THR, RPE & goal METS by session 6, Documents in home exercise log/reports 30 min aerobic 5 day/wk by DC, Demonstrates accurate pulse taking by DC, Other additional outcome/goals: see below - Intervention & Plan Exercise Program Goals: Instruct on personal THR & RPE, Instruct on MET level & personal MET goal, Show patient to take own pulse /validate performance until accurate, Instruct on home exercise, Other additional plan/int - Physical Activity Home Exercise Physical Activity - Home Exercise: Safe Exercise, Warm-up, Self-monitoring, Cool-Down, Home Exercise > 30 min Daily, Sitting Time <3 hours/daily - Outcomes & Goals Outcomes/Goals: Demonstrates correct Warm-up/exercise Cool-Down (S3) if = 2.5 METs, Verbalizes symptoms of exercise intolerance by Session 3 (S3), Demonstrate safe equipment use (S3) & follows exercise prescrition (6), Other: See below - Intervention & Plan Plan/Intervention: Instruct warm-up & cool-down if exercising at > 2 METs, Instruct on symptoms of exercise intolerance & actions to take, Instruct & monitor on saf, Assess intial functional capacity & safety risk, Other See below Nutrition - Initial Assessment - Program Goals Nutrition Program Goals: LDL <100 optimal. 100 - 129 Near optimal. 130 - 159 Borderline High. 160 - 189 High. Total Cholesterol <200 desirable. 200 - 239 Borderline High. >/= 240 High. HDL < 40 Low >/=60 High. Triglycerides <150 desirable. <199 optimal. VlDL 5 - 40. HgbA1C <7%. BMI <25 Patient has diagnosis of Hyperlipidemia (ICD E78)?: Yes - Visit Date of Assessment:: 07/09/20 - initial eval - Cholesterol/Lipids Determine presence & major risk factors that modify LDL goal: Hypertension or hypertensive medication Intervention/Plan: Advocate for lipid panel cholesterol medication if applicable, Instruct on personal lipid levels & lipid goals/NCEP guidelines, Instruct on cholesterol, Other additional plan/int Referral to dietitian:: Yes - Diabetes (Other Core Measures) Diabetes Type: Not Applicable - Weight Mgt (Other Care) Height: 5 ft 3 in Weight:: 58.513 kg BMI: 22.8 Diagnosis Overweight/Obesity BMI> 30% ICD-10 E66: No Diagnosis High BMI/Morbid Obesity BMI> 35% ICD-10 Z68: No Outcomes/Goals: Pt sets, maintains & shows weight loss goal & trend during rehab, Other additional outcomes/goals Intervention/Plan: Instruct on ideal BMI & set weight loss goal w/patient, Assist pt to ID & incorporate diet changes for weight loss by S9, Refer to Structured Weight Loss program as appropriate, Encourage goal of using 250- 300dcal per session for weight loss, Other additional plan/interventions - Healthy Eating Habits Will attend diet classes:: Yes Outcomes/Goals:: Consume diet rich in vegs,fruits,whole grain/high fiber,fish,lean meat, Limit sat/trans fats,cholesterol & added salts & sugars, Other additional outcome/goals: - Education Gave educational materials for:: Signs & symptoms of hypoglycemia, Signs & symp toms of hyperglycemia, Relate diabetes to coronary artery disease, Healthy eating Medical - Initial Assessment - Visit Date of Eval: 07/09/20 - initial eval - Medication Compliance Preventative Medication(s):: Aspirin, Clopidogrel/P2Y12 inhibit, Statin/lipid, Beta len H/O mental health issues: depression, anxiety, or addiction?: Yes Doesn?t believe in the benefits of treatment?: No Believes medications are unnecessary or harmful?: No Has a concern about medication side effects?: No Expresses concern over the cost of medications?: No Outcomes/Goals: Verbalizes medications,desired effect & common side effects @ DC, Pt self-reports following medication regimen, Keeps card in wallet w/medications listed by DC, Other additional outcome/goals: Interventions/plans: Instruct on medication effects & side effects, Review medication list w/patient every two weeks, Instruct importance of taking meds as ordered & assist problem solving, Other additional - Tobacco Use Tobacco Use: Non-smoker Do you use smokeless tobacco?: No - Hypertension Hypertension Diagnosis:: Hypertension ICD-10 I10 [place] [employer] Hypertension Guidelines: [place] [employer] Hypertension Guidelines. Normal BP Less than 120/80. Elevated BP 120/80. Hypertension Stage 1: BP 130-139/80-89. Hypertesnion Stage 2: BP 140 or higher/90 or higher. Hypertension Crisis: BP higher than 180/120 Outcomes/Goals: Able to verbalize/achieve optimal blood pressure <130/80, Incorporates diet changes & exercise for blood pressure control by DC, Other additional outcomes/goals Interventions/plan: Instruct on optimal blood pressure, hypertension & medications, Instruct on effects of sodium, alcohol, stress, exercise &hypertension, Other additional plan/interventions - Tobacco Cessation Referral Smoking Cessation Referral:: No Individual Education/Counseling:: No Education Schedule Given:: Yes Psychosocial - Initial Assess - VIsit Date of Eval: 07/09/20 - initial eval History of previous Mental disease:: Yes - anxiety History of Emotional Disorders: Anxious Self-reported stressors: Other - covid - Target Goals Target Goals: Assess presence or absence of depression. Using a valid screening tool, maximizes coping skills. Positive support system - Psychosocial Test Tool Used:: Eugene Oconnell QOL Cardiac, PHQ-9 Questionnaire phq-9 Severity: Severity. 1-4 Minimal Depression. 5-9 Mild Depression. 10-14 Moderate Depression. 15-19 Moderately Sever Depression. 20-27 Severe Depression. Rule: - Referral to Behavioral Health PS - Interventions: Yes Attend Stress Management Classes, No Referral to Behavioral Health if PHQ-9 score >9:, No Referral to [facility], No Referral to Physician if PHQ-9 if score is 5-9: - Outcomes/Goals: See list Psychosocial Outcomes/Goals:: ID's personal stressors & 2 strategies to manage stress by discharge, Other Additional outcome/goals: - Intervention/Plan: See List Interventions/Plan:: Assess stressors,coping strategies & signs of derpression on admission, Instruct/assist pt to develop coping & personal stress Mgt strategies, Refer to Behavioral Health if appropriate, Refer to Physician if appropriate, Instruct patient to recognize signs & symptoms of depression, Instruct patient to recog, Other additional plan/intervention Patient Health Questionnaire Initial Assessment 1. Little interest or pleasure in doing things: Not at all 2. Feeling down, depressed, or hopeless: Not at all 3. Trouble falling or staying asleep, or sleeping too much: Several days 4. Feeling tired or having little energy: Several days 5. Poor appetite or overeating: Several days 6. Feeling bad about yourself -- or that you are a failure or have let yourself or your family down: Several days 7. Trouble concentrating on things, such as reading the newspaper or watching television: Not at all 8. Moving or speaking so slowly that other people could have noticed. Or the opposite - being so fidgety or restless that you have been moving around a lot more than usual: Not at all 9. Thoughts that you would be better off , or of hurting yourself in some way: Not at all How difficult have these problems made it for you to do your work, take care of things at home, or get along with other people?: Not difficult at all Total Score: 4 TYLOR-Q SV Test - Statements CAD is a disease of the arteries in the heart: False Examples of risk factors for heart disease: True Angina is chest pain or discomfort: True The benefits of resistance training include: True Eating more meat and dairy products: False Anti-platelet medications such as aspirin are important: True The only effective way to manage stress: False An exercise warm-up slowly increases heart rate: True Prepared, processed foods usually have high sodium: True Depression is common after a heart attack: True The statin medications lower cholesterol: True To control blood pressure, lower the amount of sodium: True If someone gets chest discomfort during walking: False Transfats are partially hydrogenated vegetable oils: I Don't Know Sleep apnea that is not treated increases the risk: I Don't Know To control cholesterol, one should become a vegetarian: I Don't Know Someone knows if he/she is exercising at the right level: True Diabetes cannot be prevented with exercise & health eating: False Stress is a large risk for heart attack: True A diet that can help lower blood pressure is rich in: True - Total Score Total Correct Responses: 17 Self-Efficacy Initial Assessment We would like to know how confident you are in doing certain activities. Please select your confidence level for:: Select your confidence level for the following using the scale 1-10 where 1 is not at all confident and 10 is totally confident. Your score is the average of all 6 responses. Fatigue: How confident are you that you can keep the fatigue caused by your disease from interfering with the things you want to do? Select Number: 8 Physical Discomfort or Pain: How confident are you that you can keep the physical discomfort or pain of your disease from interfering with the things you want to do? Select Number: 10 Emotional Distress: How confident are you that you can keep the emotional distress caused by your disease from interfering with the things you want to do? Select Number: 8 Other Symptoms or Health Problems: How confident are you that you can keep other symptoms or health problems from interfering with the things you want to do? Select Number: 10 Different Tasks and Activities: How confident are you that you can do the different tasks and activities needed to manage your health condition so as to reduce your need to see a doctor? Select Number: 10 Medication: How confident are you that you can do things other than just taking medication to reduce how much your illness affects your everyday life? Select Number: 10 Total Score:: 9 Nutrition Survey - Nutrition Survey Instructions Scoring Instructions: Scoring is as follows: Yes = 1 points. No = 0 point. Patient score that is >/=12 is considered to be at potential nutritional risk and could benefit from a referral to a registered dietitian. - Nutrition Survey Initial Have you lost >10 lbs over the past 2 months without trying?: No Are you following a special diet at home for diabetes, low fat, or low salt?: Yes Are you interested in meeting with a dietitian for help understanding your diet?: Yes Do you eat less than 3 meals a day?: No Do you eat fatty meats (springer, sausage, ribs, etc), fried foods, desserts, large amounts of salad dressings, margarine, butter, or cheese most days?: Yes Do you have food allergies? [Enter types in comment field]: Yes Do you eat in restaurants more than 3 times a week?: No Do you season food with salt, seasoning salt, or garlic salt?: No Do you used canned, boxed, frozen meals, or soups, seasoning packets?: No Total Score:: 4
[2020-07-09 13:50] VITALS: BP 120/82; PULSE 71; O2SAT 98; BMI 22.8
== END ==
PROVIDERS: PCP Family Medicine; Referring Provider Internal Medicine Cardiovascular Disease; Visit Provider Internal Medicine Cardiovascular Disease
DX: I25.10 Atherosclerotic heart disease of native coronary artery without angina pectoris (principal); Z95.5 Presence of coronary angioplasty implant and graft

== ENCOUNTER 2020-07-11 11:01 | Outpatient (RCR) | payer MEDICARE, OTHER, SELFPAY ==
[2020-07-09 13:50] VITALS: BMI 22.8
== END 2020-07-11 23:59 ==
LOC: CR 11:01
PROVIDERS: PCP Family Medicine; Referring Provider Internal Medicine Cardiovascular Disease; Visit Provider Internal Medicine Cardiovascular Disease
DX: I25.10 Atherosclerotic heart disease of native coronary artery without angina pectoris (principal); Z95.5 Presence of coronary angioplasty implant and graft
CPT/HCPCS: 93798

== ENCOUNTER 2020-08-10 10:15 | Outpatient (RCR) | payer MEDICARE, OTHER, SELFPAY ==
[2020-07-09 13:50] VITALS: BMI 22.8
--- NOTE | 2020-08-07 08:58 | CR.ITP_ITS ---
Exercise - 30-day Assessment - Visit Date of Eval: 08/07/20 Session #:: 11 - Physician Prescribed Exercise Modalities: Treadmill, Airdyne, NuStep Frequency: 3x/week for 12 weeks [36 sessions] Intensity: 60-80% of age predicted maximum heart rate reserve Current METSs:: 4.5 increased from 3.0 Target Heart Rate:: 93-121 Current RPE:: 12 Maximum Excercise HR:: 123 Resting Blood Pressure: 144/88 Maximum Exercise Blood Pressure: 154/86 EKG Type: NSR to sinus tachycardia with PVCs. - Outcomes & Goals Goals:: Verbalizes understanding of THR, RPE & goal METS by session 6, Documents in home exercise log/reports 30 min aerobic 5 day/wk by DC, Demonstrates accurate pulse taking by DC - Intervention & Plan Exercise Program Goals: Instruct on personal THR & RPE, Instruct on MET level & personal MET goal, Show patient to take own pulse /validate performance until accurate, Instruct on home exercise - 30-day Reassessments 30 day Reassessments:: Progressing - Physical Activity Home Exercise Physical Activity - Home Exercise: Safe Exercise, Warm-up, Self-monitoring, Cool-Down, Home Exercise > 30 min Daily, Sitting Time <3 hours/daily - Outcomes & Goals Outcomes/Goals: Demonstrates correct Warm-up/exercise Cool-Down (S3) if = 2.5 METs, Verbalizes symptoms of exercise intolerance by Session 3 (S3), Demonstrate safe equipment use (S3) & follows exercise prescrition (6) - Intervention & Plan Plan/Intervention: Instruct warm-up & cool-down if exercising at > 2 METs, Instruct on symptoms of exercise intolerance & actions to take, Instruct & monitor on saf, Assess intial functional capacity & safety risk - 30-day Reassessments 30 day Reassessments:: Progressing Nutrition - 30-Day Assessment - Program Goals Nutrition Program Goals: LDL <100 optimal. 100 - 129 Near optimal. 130 - 159 Borderline High. 160 - 189 High. Total Cholesterol <200 desirable. 200 - 239 Borderline High. >/= 240 High. HDL < 40 Low >/=60 High. Triglycerides <150 desirable. <199 optimal. VlDL 5 - 40. HgbA1C <7%. BMI <25 Patient has diagnosis of Hyperlipidemia (ICD E78)?: Yes - Visit Date of Assessment:: 08/07/20 Session #:: 11 - no recent labs since admission - Cholesterol/Lipids Determine presence & major risk factors that modify LDL goal: Hypertension or hypertensive medication, Age men > 45 years; women >/= 55 years Outcomes/Goals: Pt IDs own risk factors & lifestyle modifications by Session 10, Verbalizes symptoms of angina & response by session 3., Pt independently manages Intervention/Plan: Instruct on personal lipid levels & lipid goals/NCEP guidelines, Instruct on cholesterol Referral to dietitian:: Yes - Medical Nutrition Therapy 30-day Reassessments:: Progressing - Diabetes (Other Core Measures) Diabetes Type: Not Applicable - Weight Mgt (Other Care) Not Applicable: Yes Height: 5 ft 3 in Weight:: 128 lb 8 oz BMI: 22.7 Diagnosis Overweight/Obesity BMI> 30% ICD-10 E66: No Diagnosis High BMI/Morbid Obesity BMI> 35% ICD-10 Z68: No Outcomes/Goals: Pt sets, maintains & shows weight loss goal & trend during rehab Intervention/Plan: Instruct on ideal BMI & set weight loss goal w/patient - Healthy Eating Habits Will attend diet classes:: Yes Outcomes/Goals:: Consume diet rich in vegs,fruits,whole grain/high fiber,fish,lean meat, Limit sat/trans fats,cholesterol & added salts & sugars Intervention/Plan:: Assess current eating habits 30-day Reassessments:: Progressing - Education Gave educational materials for:: Healthy eating Medical- 30-Day Assessment - Visit Date of Eval: 08/07/20 Session #:: 11 - Medication Compliance Preventative Medication(s):: Aspirin, Clopidogrel/P2Y12 inhibit, Statin/lipid, Beta len H/O mental health issues: depression, anxiety, or addiction?: No Doesn?t believe in the benefits of treatment?: No Believes medications are unnecessary or harmful?: No Has a concern about medication side effects?: No Expresses concern over the cost of medications?: No Outcomes/Goals: Verbalizes medications,desired effect & common side effects @ DC, Pt self-reports following medication regimen, Keeps card in wallet w/medications listed by DC Interventions/plans: Instruct on medication effects & side effects, Review medication list w/patient every two weeks, Instruct importance of taking meds as ordered & assist problem solving 30-day Reassessments:: Progressing - Tobacco Use Tobacco Use: Non-smoker - Hypertension Hypertension Diagnosis:: Hypertension ICD-10 I10 Resting Blood Pressure:: 144/88 - Stage II on medications [place] [employer] Hypertension Guidelines: [place] [employer] Hypertension Guidelines. Normal BP Less than 120/80. Elevated BP 120/80. Hypertension Stage 1: BP 130-139/80-89. Hypertesnion Stage 2: BP 140 or higher/90 or higher. Hypertension Crisis: BP higher than 180/120 Peak Exercise Blood Pressure:: 154/86 Outcomes/Goals: Able to verbalize/achieve optimal blood pressure <130/80, Incorporates diet changes & exercise for blood pressure control by DC Interventions/plan: Instruct on optimal blood pressure, hypertension & medications, Instruct on effects of sodium, alcohol, stress, exercise &hypertension 30 day Reassessments:: Not Met - Tobacco Cessation Referral Smoking Cessation Referral:: No Individual Education/Counseling:: No Education Schedule Given:: Yes Psychosocial - 30-Day Assess - VIsit Date of Eval: 08/07/20 Session #:: 11 Not Applicable: Yes History of previous Mental disease:: No - Target Goals Target Goals: Assess presence or absence of depression. Using a valid screening tool, maximizes coping skills. Positive support system - Psychosocial Test Tool Used:: PHQ-9 Questionnaire phq-9 Severity: Severity. 1-4 Minimal Depression. 5-9 Mild Depression. 10-14 Moderate Depression. 15-19 Moderately Sever Depression. 20-27 Severe Depression. Rule: - Referral to Behavioral Health PS - Interventions: Yes Attend Stress Management Classes, No Referral to Behavioral Health if PHQ-9 score >9:, No Referral to [facility], No Referral to Physician if PHQ-9 if score is 5-9: - Outcomes/Goals: See list Psychosocial Outcomes/Goals:: ID's personal stressors & 2 strategies to manage stress by discharge - Intervention/Plan: See List Interventions/Plan:: Assess stressors,coping strategies & signs of derpression on admission, Instruct/assist pt to develop coping & personal stress Mgt strategies, Instruct patient to recognize signs & symptoms of depression, Instruct patient to recog - 30-day Reassessments: 30 day Reassessments:: Progressing Patient Health Questionnaire 30-Day Re-eval Assessment 1. Little interest or pleasure in doing things: Not at all 2. Feeling down, depressed, or hopeless: Not at all 3. Trouble falling or staying asleep, or sleeping too much: Several days 4. Feeling tired or having little energy: Several days 5. Poor appetite or overeating: Not at all 6. Feeling bad about yourself -- or that you are a failure or have let yourself or your family down: Not at all 7. Trouble concentrating on things, such as reading the newspaper or watching television: Not at all 8. Moving or speaking so slowly that other people could have noticed. Or the opposite - being so fidgety or restless that you have been moving around a lot more than usual: Not at all 9. Thoughts that you would be better off , or of hurting yourself in some way: Not at all Total Score: 2 Self-Efficacy 30-Day Re-eval Assessment We would like to know how confident you are in doing certain activities. Please select your confidence level for:: Select your confidence level for the following using the scale 1-10 where 1 is not at all confident and 10 is totally confident. Your score is the average of all 6 responses. Fatigue: How confident are you that you can keep the fatigue caused by your disease from interfering with the things you want to do? Select Number: 9 Physical Discomfort or Pain: How confident are you that you can keep the physical discomfort or pain of your disease from interfering with the things you want to do? Select Number: 10 Emotional Distress: How confident are you that you can keep the emotional distress caused by your disease from interfering with the things you want to do? Select Number: 10 Other Symptoms or Health Problems: How confident are you that you can keep other symptoms or health problems from interfering with the things you want to do? Select Number: 10 Different Tasks and Activities: How confident are you that you can do the different tasks and activities needed to manage your health condition so as to reduce your need to see a doctor? Select Number: 10 Medication: How confident are you that you can do things other than just taking medication to reduce how much your illness affects your everyday life? Select Number: 10 Total Score:: 9
[2020-08-07 09:04] VITALS: BP 144/88; BP 154/86; BMI 22.7
== END 2020-08-11 23:59 ==
LOC: CR 10:15
PROVIDERS: PCP Family Medicine; Referring Provider Internal Medicine Cardiovascular Disease; Visit Provider Internal Medicine Cardiovascular Disease
DX: I25.10 Atherosclerotic heart disease of native coronary artery without angina pectoris (principal); Z95.5 Presence of coronary angioplasty implant and graft
CPT/HCPCS: 93798

== ENCOUNTER → 2020-08-17 05:48 | Outpatient (CLI) | payer MEDICARE, OTHER, SELFPAY ==
[2020-07-09 13:50] VITALS: BMI 22.8
[2020-08-07 09:04] VITALS: BMI 22.7
--- NOTE | 2020-08-17 11:00 | STRESSREP_ITS ---
Stress Test Report Date: 08-17-2020 Procedure: Pharmacologic stress nuclear imaging study Indications: Chest pain; CAD; PCI; left bundle branch block Consent: Per the patient Procedure: The patient underwent pharmacologic (Regadenoson) evaluation with a peak heart rate of 116 beats per minute (81%predicted maximal heart rate) and a peak blood pressure of 164/80 mmHg. The baseline ECG demonstrated sinus rhythm; left bundle branch block pattern. The peak pharmacologic ECG demonstrated with no obvious ECG changes. There was an occasional PVC pretest and during recovery. There was no complaint of chest discomfort during pharmacologic infusion or recovery. The examination was discontinued secondary to completion of protocol. Impression: 1. Pharmacologic (Regadenoson) evaluation 2. Peak pharmacologic ECG with with continued left bundle branch block pattern with no obvious ECG changes. 3. Was an occasional PVC pretest and during recovery. 4. Nuclear images pending Myocardial perfusion imaging study: Technique: The patient was injected with 11.1 millicuries of technetium 99m Cardiolite and subsequently rest SPECT Cardiolite nuclear imaging was obtained in the horizontal long, vertical long, and short axis views. The patient underwent pharmacologic (Regadenoson) evaluation with a peak heart rate of 116 beats per minute (81% percent predicted maximal heart rate) and a peak blood pressure of 164/80 mmHg. The patient was injected with 35.0 millicuries of technetium 99m Cardiolite and subsequently stress SPECT Cardiolite nuclear imaging was obtained in the horizontal long, vertical long, and short axis views. A gated Cardiolite study at peak stress was obtained. Interpretation: Rest and stress SPECT Cardiolite nuclear imaging status post realignment, normalization, and attenuation correction demonstrate relative uniform tracer uptake and myocardial perfusion appearing within normal limits. There is end systolic thickening and brightening. The gated Cardiolite study demonstrates myocardial thickening and inward wall motion. The reported LVEF is 36%. Impression: 1. Rest and stress SPECT Cardiolite nuclear imaging demonstrate relative uniform tracer uptake and myocardial perfusion appearing within normal limits. 2. The gated Cardiolite study reports an LVEF of 36%. This note was generated with [employer] software. It may contain incorrect words, spelling, and punctuation that were not noted in checking the note before signing.
== END ==
PROVIDERS: PCP Family Medicine; Referring Provider Physician Assistant Medical; Visit Provider Physician Assistant Medical
DX: I25.10 Atherosclerotic heart disease of native coronary artery without angina pectoris (principal); R07.9 Chest pain, unspecified
CPT/HCPCS: 78452; 93017; A9500; A4216; J2785

== ENCOUNTER 2020-09-10 10:15 | Outpatient (RCR) | payer MEDICARE, OTHER, SELFPAY ==
[2020-07-09 13:50] VITALS: BMI 22.8
[2020-08-07 09:04] VITALS: BMI 22.7
[2020-08-12 00:35] VITALS: BP 144/88; BP 154/86
--- NOTE | 2020-09-05 08:17 | CR.ITP_ITS ---
Exercise - 60-day Assessment - Visit Date of Eval: 09/05/20 Session #:: 20 - Physician Prescribed Exercise Modalities: Treadmill, Airdyne, NuStep Frequency: 3x/week for 12 weeks [36 sessions] Intensity: 60-80% of age predicted maximum heart rate reserve Current METSs:: 5.5 Target Heart Rate:: 93-121 Current RPE:: 12-13 Resting Blood Pressure: 124/78 Maximum Exercise Blood Pressure: 170/80 EKG Type: NSR with BBB with rare PVC - Outcomes & Goals Goals:: Verbalizes understanding of THR, RPE & goal METS by session 6, Documents in home exercise log/reports 30 min aerobic 5 day/wk by DC, Demonstrates accurate pulse taking by DC - Intervention & Plan Exercise Program Goals: Instruct on personal THR & RPE, Instruct on MET level & personal MET goal, Show patient to take own pulse /validate performance until accurate, Instruct on home exercise - 30-day Reassessments 30 day Reassessments:: Progressing - Physical Activity Home Exercise Physical Activity - Home Exercise: Safe Exercise, Warm-up, Self-monitoring, Cool-Down, Home Exercise > 30 min Daily, Sitting Time <3 hours/daily - Outcomes & Goals Outcomes/Goals: Demonstrates correct Warm-up/exercise Cool-Down (S3) if = 2.5 METs, Verbalizes symptoms of exercise intolerance by Session 3 (S3), Demonstrate safe equipment use (S3) & follows exercise prescrition (6) - Intervention & Plan Plan/Intervention: Instruct warm-up & cool-down if exercising at > 2 METs, Instr uct on symptoms of exercise intolerance & actions to take, Instruct & monitor on saf, Assess intial functional capacity & safety risk - 30-day Reassessments 30 day Reassessments:: Progressing Nutrition - 60-Day Assessment - Program Goals Nutrition Program Goals: LDL <100 optimal. 100 - 129 Near optimal. 130 - 159 Borderline High. 160 - 189 High. Total Cholesterol <200 desirable. 200 - 239 Borderline High. >/= 240 High. HDL < 40 Low >/=60 High. Triglycerides <150 desirable. <199 optimal. VlDL 5 - 40. HgbA1C <7%. BMI <25 Patient has diagnosis of Hyperlipidemia (ICD E78)?: Yes - Visit Date of Assessment:: 09/05/20 Session #:: 20 - Cholesterol/Lipids Determine presence & major risk factors that modify LDL goal: Hypertension or hypertensive medication, Family history of premature CHD in Male < 55 years: female <65 yearsFa, Age men > 45 years; women >/= 55 years Outcomes/Goals: Pt IDs own risk factors & lifestyle modifications by Session 10, Verbalizes symptoms of angina & response by session 3., Pt independently manages Intervention/Plan: Instruct on personal lipid levels & lipid goals/NCEP guidelines, Instruct on cholesterol Referral to dietitian:: No - patient declined 30-day Reassessments:: Progressing - Diabetes (Other Core Measures) Diabetes Type: Not Applicable - Weight Mgt (Other Care) Not Applicable: Yes Height: 5 ft 3 in Weight:: 127 lb 8 oz BMI: 22.6 Diagnosis Overweight/Obesity BMI> 30% ICD-10 E66: No Diagnosis High BMI/Morbid Obesity BMI> 35% ICD-10 Z68: No Outcomes/Goals: Pt sets, maintains & shows weight loss goal & trend during rehab Intervention/Plan: Instruct on ideal BMI & set weight loss goal w/patient, Assist pt to ID & incorporate diet changes for weight loss by S9, Encourage goal of using 250-300dcal per session for weight loss 30 day Reassessments:: Progressing - Healthy Eating Habits Will attend diet classes:: Yes Outcomes/Goals:: Consume diet rich in vegs,fruits,whole grain/high fiber,fish,lean meat, Limit sat/trans fats,cholesterol & added salts & sugars Intervention/Plan:: Assess current eating habits 30-day Reassessments:: Progressing Medical- 60-Day Assessment - Visit Date of Eval: 09/05/20 Session #:: 21 - Medication Compliance Preventative Medication(s):: Aspirin, Clopidogrel/P2Y12 inhibit, Statin/lipid, Beta len H/O mental health issues: depression, anxiety, or addiction?: No Doesn?t believe in the benefits of treatment?: No Believes medications are unnecessary or harmful?: No Has a concern about medication side effects?: No Expresses concern over the cost of medications?: No Outcomes/Goals: Verbalizes medications,desired effect & common side effects @ DC, Pt self-reports following medication regimen, Keeps card in wallet w/medications listed by DC Interventions/plans: Instruct on medication effects & side effects, Review medication list w/patient every two weeks, Instruct importance of taking meds as ordered & assist problem solving 30-day Reassessments:: Progressing - Tobacco Use Tobacco Use: Non-smoker Interventions/plan: Instruct on effects of smoking & provide smoking cessation resource, Assist pt to set quit date & provide encouragement, Assist pt to develop strategies to achieve/maintain quit date, Assist pt w/nicotine replacement & medication for cessation success 30-day Reassessments:: Progressing - Hypertension Hypertension Diagnosis:: Hypertension ICD-10 I10 Resting Blood Pressure:: 124/78 [employer] [place] [employer] Hypertension Guidelines: [place] [employer] Hypertension Guidelines. Normal BP Less than 120/80. Elevated BP 120/80. Hype rtension Stage 1: BP 130-139/80-89. Hypertesnion Stage 2: BP 140 or higher/90 or higher. Hypertension Crisis: BP higher than 180/120 Peak Exercise Blood Pressure:: 170/80 Outcomes/Goals: Able to verbalize/achieve optimal blood pressure <130/80, Incorporates diet changes & exercise for blood pressure control by DC Interventions/plan: Instruct on optimal blood pressure, hypertension & medications, Instruct on effects of sodium, alcohol, stress, exercise &hypertension 30 day Reassessments:: Progressing - Tobacco Cessation Referral Smoking Cessation Referral:: No Individual Education/Counseling:: No Education Schedule Given:: No Psychosocial - 60-Day Assess - VIsit Date of Eval: 09/05/20 Session #:: 21 Not Applicable: Yes History of previous Mental disease:: No - Target Goals Target Goals: Assess presence or absence of depression. Using a valid screening tool, maximizes coping skills. Positive support system - Psychosocial Test Tool Used:: PHQ-9 Questionnaire phq-9 Severity: Severity. 1-4 Minimal Depression. 5-9 Mild Depression. 10-14 Moderate Depression. 15-19 Moderately Sever Depression. 20-27 Severe Depression. Rule: - Referral to Behavioral Health PS - Interventions: Yes Attend Stress Management Classes, No Referral to Behavioral Health if PHQ-9 score >9:, No Referral to [facility], No Referral to Physician if PHQ-9 if score is 5-9: - Outcomes/Goals: See list Psychosocial Outcomes/Goals:: ID's personal stressors & 2 strategies to manage stress by discharge - Intervention/Plan: See List Interventions/Plan:: Assess stressors,coping strategies & signs of derpression on admission, Instruct/assist pt to develop coping & personal stress Mgt strategies, Instruct patient to recognize signs & symptoms of depression, Instruct patient to recog - 30-day Reassessments: 30 day Reassessments:: Progressing Patient Health Questionnaire 60-Day Re-eval Assessment 1. Little interest or pleasure in doing things: Not at all 2. Feeling down, depressed, or hopeless: Not at all 3. Trouble falling or staying asleep, or sleeping too much: Not at all 4. Feeling tired or having little energy: Not at all 5. Poor appetite or overeating: Not at all 6. Feeling bad about yourself -- or that you are a failure or have let yourself or your family down: Not at all 7. Trouble concentrating on things, such as reading the newspaper or watching television: Not at all 8. Moving or speaking so slowly that other people could have noticed. Or the opposite - being so fidgety or restless that you have been moving around a lot more than usual: Not at all 9. Thoughts that you would be better off , or of hurting yourself in some way: Not at all How difficult have these problems made it for you to do your work, take care of things at home, or get along with other people?: Not difficult at all Total Score: 0 Self-Efficacy 60-Day Re-eval Assessment We would like to know how confident you are in doing certain activities. Please select your confidence level for:: Select your confidence level for the following using the scale 1-10 where 1 is not at all confident and 10 is totally confident. Your score is the average of all 6 responses. Fatigue: How confident are you that you can keep the fatigue caused by your disease from interfering with the things you want to do? Select Number: 10 Physical Discomfort or Pain: How confident are you that you can keep the physical discomfort or pain of your disease from interfering with the things you want to do? Select Number: 10 Emotional Distress: How confident are you that you can keep the emotional distress caused by your disease from interfering with the things you want to do? Select Number: 10 Other Symptoms or Health Problems: How confident are you that you can keep other symptoms or health problems from interfering with the things you want to do? Select Number: 10 Different Tasks and Activities: How confident are you that you can do the different tasks and activities needed to manage your health condition so as to reduce your need to see a doctor? Select Number: 10 Medication: How confident are you that you can do things other than just taking medication to reduce how much your illness affects your everyday life? Select Number: 10 Total Score:: 10
[2020-09-05 08:29] VITALS: BP 124/78; BP 170/80; BMI 22.6
== END 2020-09-10 23:59 ==
LOC: CR 10:15
PROVIDERS: PCP Family Medicine; Referring Provider Internal Medicine Cardiovascular Disease; Visit Provider Internal Medicine Cardiovascular Disease
DX: I25.10 Atherosclerotic heart disease of native coronary artery without angina pectoris (principal); Z95.5 Presence of coronary angioplasty implant and graft
CPT/HCPCS: 93798

== ENCOUNTER 2020-10-10 10:15 | Outpatient (RCR) | payer MEDICARE, OTHER, SELFPAY ==
[2020-07-09 13:50] VITALS: BMI 22.8
[2020-09-05 08:29] VITALS: BMI 22.6
[2020-09-11 00:33] VITALS: BP 124/78; BP 170/80
--- NOTE | 2020-10-03 07:21 | PCM.CR.ITP ---
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 - Outcomes & Goals Goals:: Verbalizes understanding of THR, RPE & goal METS by session 6, Documents in home exercise log/reports 30 min aerobic 5 day/wk by DC, Demonstrates accurate pulse taking by DC, Other additional outcome/goals: see below - Intervention & Plan Exercise Program Goals: Instruct on personal THR & RPE, Instruct on MET level & personal MET goal, Show patient to take own pulse /validate performance until accurate, Instruct on home exercise, Other additional plan/int - 30-day Reassessments 30 day Reassessments:: Progressing - Physical Activity Home Exercise Physical Activity - Home Exercise: Safe Exercise, Warm-up, Self-monitoring, Cool-Down, Home Exercise > 30 min Daily, Sitting Time <3 hours/daily - Outcomes & Goals Outcomes/Goals: Demonstrates correct Warm-up/exercise Cool-Down (S3) if = 2.5 METs, Verbalizes symptoms of exercise intolerance by Session 3 (S3), Demonstrate safe equipment use (S3) & follows exercise prescrition (6), Other: See below - Intervention & Plan Plan/Intervention: Instruct warm-up & cool-down if exercising at > 2 METs, Instruct on symptoms of exercise intolerance & actions to take, Instruct & monitor on saf, Assess intial functional capacity & safety risk, Other See below - 30-day Reassessments 30 day Reassessments:: Progressing Nutrition - 90-Day Assessment - Program Goals Nutrition Program Goals: LDL <100 optimal. 100 - 129 Near optimal. 130 - 159 Borderline High. 160 - 189 High. Total Cholesterol <200 desirable. 200 - 239 Borderline High. >/= 240 High. HDL < 40 Low >/=60 High. Triglycerides <150 desirable. <199 optimal. VlDL 5 - 40. HgbA1C <7%. BMI <25 - Visit Date of Assessment:: 10/03/20 Session #:: 31 - Cholesterol/Lipids Determine presence & major risk factors that modify LDL goal: Hypertension or hypertensive medication, Low HDL cholesterol <40 mg/dL*, Family history of premature CHD in Male < 55 years: female <65 yearsFa, Age men > 45 years; women >/= 55 years Outcomes/Goals: Pt IDs own risk factors & lifestyle modifications by Session 10, Verbalizes symptoms of angina & response by session 3., Pt independently manages, Other Additional Outcomes/Goals: Intervention/Plan: Advocate for lipid panel cholesterol medication if applicable, Instruct on personal lipid levels & lipid goals/NCEP guidelines, Instruct on cholesterol, Other additional plan/int Referral to dietitian:: No 30-day Reassessments:: Progressing - Diabetes (Other Core Measures) Diabetes Type: Not Applicable - Weight Mgt (Other Care) Height: 5 ft 3 in Weight:: 57.606 kg BMI: 22.4 Outcomes/Goals: Pt sets, maintains & shows weight loss goal & trend during rehab, Other additional outcomes/goals Intervention/Plan: Instruct on ideal BMI & set weight loss goal w/patient, Assist pt to ID & incorporate diet changes for weight loss by S9, Refer to Structured Weight Loss program as appropriate, Encourage goal of using 250-300dcal per session for weight loss, Other additional plan/interventions 30 day Reassessments:: Progressing - Healthy Eating Habits Will attend diet classes:: Yes Outcomes/Goals:: Consume diet rich in vegs,fruits,whole grain/high fiber,fish,lean meat, Limit sat/trans fats,cholesterol & added salts & sugars, Other additional outcome/goals: Intervention/Plan:: Assess current eating habits, Other Additional plan/interventions 30-day Reassessments:: Progressing - Education Gave educational materials for:: Signs & symptoms of hypoglycemia, Signs & symptoms of hyperglycemia, Relate diabetes to coronary artery disease, Healthy eating Medical- 90-Day Assessment - Visit Date of Eval: 10/03/20 Session #:: 31 - Medication Compliance Preventative Medication(s):: Aspirin, Clopidogrel/P2Y12 inhibit H/O mental health issues: depression, anxiety, or addiction?: No Doesn?t believe in the benefits of treatment?: No Believes medications are unnecessary or harmful?: No Has a concern about medication side effects?: No Expresses concern over the cost of medications?: No Outcomes/Goals: Verbalizes medications,desired effect & common side effects @ DC, Pt self-reports following medication regimen, Keeps card in wallet w/medications listed by DC, Other additional outcome/goals: 30-day Reassessments:: Progressing - Tobacco Use Tobacco Use: Non-smoker Do you use smokeless tobacco?: No 30-day Reassessments:: Progressing - Hypertension Hypertension Diagnosis:: Hypertension ICD-10 I10 Resting Blood Pressure:: 130/74 [place] [employer] Hypertension Guidelines: [place] [employer] Hypertension Guidelines. Normal BP Less than 120/80. Elevated BP 120/80. Hypertension Stage 1: BP 130-139/80-89. Hypertesnion Stage 2: BP 140 or higher/90 or higher. Hypertension Crisis: BP higher than 180/120 Peak Exercise Blood Pressure:: 160/70 Outcomes/Goals: Able to verbalize/achieve optimal blood pressure <130/80, Incorporates diet changes & exercise for blood pressure control by DC, Other additional outcomes/goals Interventions/plan: Instruct on optimal blood pressure, hypertension & medications, Instruct on effects of sodium, alcohol, stress, exercise &hypertension, Other additional plan/interventions 30 day Reassessments:: Progressing - Tobacco Cessation Referral Smoking Cessation Referral:: No Individual Education/Counseling:: No Education Schedule Given:: Yes Psychosocial - 90-Day Assess - VIsit Date of Eval: 10/03/20 Session #:: 31 History of previous Mental disease:: No - Target Goals Target Goals: Assess presence or absence of depression. Using a valid screening tool, maximizes coping skills. Positive support system - Psychosocial Test phq-9 Severity: Severity. 1-4 Minimal Depression. 5-9 Mild Depression. 10-14 Moderate Depression. 15-19 Moderately Sever Depression. 20-27 Severe Depression. Rule: - Outcomes/Goals: See list Psychosocial Outcomes/Goals:: ID's personal stressors & 2 strategies to manage stress by discharge, Other Additional outcome/goals: - Intervention/Plan: See List Interventions/Plan:: Assess stressors,coping strategies & signs of derpression on admission, Instruct/assist pt to develop coping & personal stress Mgt strategies, Refer to Behavioral Health if appropriate, Refer to Physician if appropriate, Instruct patient to recognize signs & symptoms of depression, Instruct patient to recog, Other additional plan/intervention - 30-day Reassessments: 30 day Reassessments:: Progressing Patient Health Questionnaire 90-Day Re-eval Assessment 1. Little interest or pleasure in doing things: Not at all 2. Feeling down, depressed, or hopeless: Not at all 3. Trouble falling or staying asleep, or sleeping too much: Not at all 4. Feeling tired or having little energy: Not at all 5. Poor appetite or overeating: Not at all 6. Feeling bad about yourself -- or that you are a failure or have let yourself or your family down: Not at all 7. Trouble concentrating on things, such as reading the newspaper or watching television: Not at all 8. Moving or speaking so slowly that other people could have noticed. Or the opposite - being so fidgety or restless that you have been moving around a lot more than usual: Not at all 9. Thoughts that you would be better off , or of hurting yourself in some way: Not at all How difficult have these problems made it for you to do your work, take care of things at home, or get along with other people?: Not difficult at all Total Score: 0 Self-Efficacy 90-Day Re-eval Assessment We would like to know how confident you are in doing certain activities. Please select your confidence level for:: Select your confidence level for the following using the scale 1-10 where 1 is not at all confident and 10 is totally confident. Your score is the average of all 6 responses. Fatigue: How confident are you that you can keep the fatigue caused by your disease from interfering with the things you want to do? Select Number: 10 Physical Discomfort or Pain: How confident are you that you can keep the physical discomfort or pain of your disease from interfering with the things you want to do? Select Number: 10 Emotional Distress: How confident are you that you can keep the emotional distress caused by your disease from interfering with the things you want to do? Select Number: 10 Other Symptoms or Health Problems: How confident are you that you can keep other symptoms or health problems from interfering with the things you want to do? Select Number: 10 Different Tasks and Activities: How confident are you that you can do the different tasks and activities needed to manage your health condition so as to reduce your need to see a doctor? Select Number: 10 Medication: How confident are you that you can do things other than just taking medication to reduce how much your illness affects your everyday life? Select Number: 10 Total Score:: 10
[2020-10-03 07:30] VITALS: BP 130/74; BP 160/70; BMI 22.4
== END 2020-10-11 23:59 ==
LOC: CR 10:15
PROVIDERS: PCP Family Medicine; Referring Provider Internal Medicine Cardiovascular Disease; Visit Provider Internal Medicine Cardiovascular Disease
DX: I25.10 Atherosclerotic heart disease of native coronary artery without angina pectoris (principal); Z95.5 Presence of coronary angioplasty implant and graft
CPT/HCPCS: 93798

== ENCOUNTER 2020-10-17 10:15 | Outpatient (RCR) | payer MEDICARE, OTHER, SELFPAY ==
[2020-09-26 12:54] VITALS: BMI 22.3
[2020-10-03 07:30] VITALS: BMI 22.4
[2020-10-12 00:29] VITALS: BP 130/74; BP 160/70
== END 2020-11-11 23:59 ==
LOC: CR 10:15
PROVIDERS: PCP Family Medicine; Referring Provider Internal Medicine Cardiovascular Disease; Visit Provider Internal Medicine Cardiovascular Disease
DX: I25.10 Atherosclerotic heart disease of native coronary artery without angina pectoris (principal); Z95.5 Presence of coronary angioplasty implant and graft
CPT/HCPCS: 93798

== ENCOUNTER → 2025-08-07 | Outpatient (CLI) | payer MEDICARE, OTHER, SELFPAY ==
[2020-10-03 07:30] VITALS: BMI 22.4
== END | disposition home or self-care (01) ==
LOC: PSN 11:41
PROVIDERS: PCP Registered Nurse; Referring Provider Nurse Practitioner Family; Visit Provider Nurse Practitioner Family
DX: I49.9 Cardiac arrhythmia, unspecified (principal); I25.10 Atherosclerotic heart disease of native coronary artery without angina pectoris; I10 Essential (primary) hypertension; E78.5 Hyperlipidemia, unspecified; I44.7 Left bundle-branch block, unspecified; I34.1 Nonrheumatic mitral (valve) prolapse; Z95.5 Presence of coronary angioplasty implant and graft
CPT/HCPCS: 93225; 93226